=== PATIENT | female | born 1930 | race Hispanic/Latino ===

== ENCOUNTER 2017-07-12 19:13 | Emergency (ER) | payer OTHER ==
[~2017-07-12] VITALS: Ht 152.4 cm; Wt 104.3 kg
[~2017-07-12 19:13] MED LIST: ALENDRONATE SOD70 MG PO; ASA325 PO; ASPIRIN81 MG PO; CARVEDILOL12.5 MG PO; CARVEDILOL25 MG PO; DETROL LA4 MG PO; FERROUS SULFAT325 M1 PO; FERROUS SULFAT325 MG PO; IBUPROFEN600 MG PO; LEVAQUIN500 MG PO; LISINOPRIL40 MG PO; LOVASTATIN40 MG PO; OMEPRAZOLE-BIC1 EACH PO; OMEPRAZOLE40 MG PO; OXYBUTYNIN CHLOR5 M1 PO; OXYBUTYNIN CHLOR5 MG PO; ULTRAM 50MG50 MG PO; ULTRAM50 MG PO; XARELTO10 MG PO
[2017-07-12] MEDS ORDERED: CLONIDINE HCL 0.1 MG TAB PO ONE (20:15)
[2017-07-12] MEDS ORDERED: ALBUTEROL/IPRATROPIUM 3 ML NEB NEB ONE (20:30)
[2017-07-12 22:27] VITALS: BP 145/75
== END 2017-07-12 22:28 | disposition home or self-care (01) ==
LOC: FSED 19:13
DX: R06.00 Dyspnea, unspecified (principal); J45.901 Unspecified asthma with (acute) exacerbation; J00 Acute nasopharyngitis [common cold]; D64.9 Anemia, unspecified; I10 Essential (primary) hypertension
CPT/HCPCS: 71046; 80053; 81003; 82553; 83880; 84484; 85025; 87086; 93005; 99283

== ENCOUNTER 2017-12-09 17:55 | Emergency (ER) | payer OTHER ==
[~2017-12-09] VITALS: Ht 154.9 cm; Wt 72.4 kg
[2017-12-09] MEDS ORDERED: ALBUTEROL/IPRATROPIUM 3 ML NEB NEB ONE (18:30)
[2017-12-09] MEDS ORDERED: SODIUM CHLORIDE 0.9% 500ML 500 ML ONE (19:45)
[2017-12-09 20:51] VITALS: BP 143/66
== END 2017-12-09 21:24 | disposition home or self-care (01) ==
LOC: FSED 17:55
DX: R06.00 Dyspnea, unspecified (principal); J45.21 Mild intermittent asthma with (acute) exacerbation; I10 Essential (primary) hypertension; D50.9 Iron deficiency anemia, unspecified
CPT/HCPCS: 71260; 80053; 82553; 83880; 84484; 85025; 85379; 93005; 94760; 99284; J7040

== ENCOUNTER 2018-10-24 15:19 | Emergency (ER) | payer MEDICARE, OTHER ==
[~2018-10-24] VITALS: Ht 154.9 cm; Wt 72.1 kg
--- OUTSIDE RECORDS SUMMARY | 2018-10-24 15:27 | XMS REPORT | Summary of Care ---
Author Author [facility] Organization [facility] Address Unknown Phone Unavailable Encounter [facility]res(FIN) [id number] Date(s): 02/22/18 - 02/23/18 [facility] [address] [address]- Vital Signs No data available for this section Problem List Condition Effective Dates Status Health Status Informant Chronic blood loss Active anemia(Confirmed) Oral Active aphthae(Confirmed) Benign Active hypertension(Confirm ed) Cholelithiasis(Confi Active rmed) Chronic Active anemia(Confirmed) Chronic back Active pain(Confirmed) Chronic Active diarrhea(Confirmed) Gastritis(Confirmed) Active Mixed Active hyperlipidemia(Confi rmed) Liver Active cyst(Confirmed) Liver Active mass(Confirmed) OA Active (osteoarthritis)(Con firmed) Osteoporosis(Confirm Active ed) Prediabetes(Confirme Active d) Recurrent urinary Active tract infection(Confirmed) Unstable Active gait(Confirmed) UI (urinary Active incontinence)(Confir med) Weight Active loss(Confirmed) Allergies, Adverse Reactions, Alerts No Known Medication Allergies Medications lisinopril 40 mg oral tablet 40 mg=1 tab, PO, Daily, # 90 tab, 0 Refill(s), [facility]acy: [facility] Start Date: 02/22/18 Stop Date: 07/01/18 Status: Discontinued omeprazole 40 mg oral delayed release capsule 40 mg=1 cap, PO, Daily, # 90 cap, 0 Refill(s), Pharmacy: [facility] Start Date: 02/22/18 Stop Date: 03/04/18 Status: Discontinued Results No data available for this section Immunizations Given and Recorded Vaccine Date Status Refusal Reason influenza virus vaccine, inactivated 01/28/18 Given pneumococcal 13-valent vaccine 01/28/18 Given hepatitis B adult vaccine 12/25/15 Given hepatitis B adult vaccine 07/11/15 Given hepatitis B adult vaccine 06/11/15 Given pneumococcal 23-valent vaccine 05/03/15 Recorded Procedures Procedure Date Related Diagnosis Body Site Status Endoscopy1 01/27/18 Completed Colonoscopy2 12/03/16 Completed Echocardiogram3 08/19/16 Completed Bone density scan4 06/15/16 Completed Cholecystectomy 08/2015 Completed Knee replacement2013 Completed Hysterectomy Completed 1mild gastritis and duodenitis without any active bleeding. @ [facility]patient [facility]. 2diverticulosis Dr Mcgill 3EF 68% Mild MR Dr Cortez 4Osteoporosis left femoral neck 5left knee Social History Social History Type Response Alcohol Never Smoking Status Never smoker; Exposure to Tobacco Smoke None; Cigarette Smoking Last 365 Days No; Reg Smoking Cessation Counseling No entered on: 07/01/18 Assessment and Plan No data available for this section
--- OUTSIDE RECORDS SUMMARY | 2018-10-24 15:27 | XMS REPORT | Summary of Care ---
Author Author [facility] Organization [facility] Address Unknown Phone Unavailable Encounter LESVIA Bravo(FIN) [id number] Date(s): 07/01/18 - 07/01/18 [facility] [address], [address] [place] [address]- [phone] Discharge Disposition: Home or Self Care Attending Physician: Bailey Figueroa MD Vital Signs Most recent to 1 oldest [Reference Range]: Height 152.4 cm (07/01/18 9:50 AM) Temperature Oral 97.0 DegF [96.4-99.1 DegF] (07/01/18 9:50 AM) Blood Pressure 105/57 mmHg [90-140/60-90 mmHg] (07/01/18 9:50 AM) Respiratory Rate 16 BRMIN [14-20 BRMIN] (07/01/18 9:50 AM) Peripheral Pulse 66 bpm Rate [60-100 bpm] (07/01/18 9:50 AM) Weight 72.727 kg (07/01/18 9:50 AM) Body Mass Index 31.31 m2 (07/01/18 9:50 AM) Problem List Condition Effective Dates Status Health [...] Weight Active loss(Confirmed) Allergies, Adverse Reactions, Alerts Substance Reaction Severity Status NKDA Active Medications Voltaren Topical 1% topical gel 2 gm=1 appl, TOP, BID, Apply to affected area, # 100 gm, 1 Refill(s), Pharmacy: [facility] [id number] Start Date: 07/01/18 Status: Ordered Results No data available for this section [...] duodenitis without any active bleeding. @ Inpatient [facility]. 2diverticulosis Dr Mcgill 3EF 68% Mild MR Dr Cortez 4Osteoporosis left femoral neck 5left knee Social History Social History Type Response Alcohol Never Smoking Status Never smoker; Exposure to Tobacco Smoke None; Cigarette Smoking Last 365 Days No; Reg Smoking Cessation Counseling No entered on: 07/01/18 Assessment and Plan No data available for this section
--- OUTSIDE RECORDS SUMMARY | 2018-10-24 15:27 | XMS REPORT | Summary of Care ---
Author Author [facility] Organization [facility] Address Unknown Phone Unavailable Encounter [facility](FIN) [id number] Date(s): 07/03/18 - 07/04/18 [facility] [address], [address] [place] [address]- [phone] Vital Signs No data available for this [...] Substance Reaction Severity Status NKDA Active Medications No data available for this section Results No data available for this section [...]
--- OUTSIDE RECORDS SUMMARY | 2018-10-24 15:27 | XMS REPORT | Continuity of Care Document ---
Author Author [facility] Interface Address Unknown Phone Unavailable Problems Problem Status Onset Date Classification Date Reported Comments Source Melena 04/03/2018 08/17/2018 [facility] ABNORMAL LABS Active 01/27/2018 [facility] GI BLEED/ACUTE BLOOD LOSS ANEMIA Active 01/27/2018 [facility] Shortness of breath 11/30/2017 06/13/2018 [facility] R06.02 SHORTNESS OF BREATH Active 11/18/2017 [facility] R06.02 Active 08/24/2017 [facility] Weakness 08/12/2017 11/10/2017 [facility] [place] WEAKNESS, UNSTEADINESS ON FEET Active 06/10/2017 [facility] [place] DX: M81.0=AGE-RELATED OSTEOPOROSIS WITH Active 06/10/2016 [facility] INJECTION Active 12/25/2015 [facility] INJECTION HEP C Active 06/11/2015 [facility] GALLBLADDER Active 03/14/2015 [facility] CONSULT FOR CHOLECYSTECTOMY Active 03/08/2015 [facility] 4 WK FOLLOW UP Active 12/24/2014 [facility] LIVER CYST LEFT LOBE Active 11/05/2014 [facility] Asthma Active Problem 12/28/2015 [facility] 12/28/2015 [facility] Gallstone Active Problem 12/28[facility]2015 [facility] GERD (<span ID="[id number]">Confirmed</span>) Active Problem 12/28/2015 [facility] High blood pressure Active Problem 12/28/2015 [facility] Liver cyst Active Problem 12/28[facility] Ob[facility] 12/28[facility]2015 [facility]17[facility] Gallstone Active Problem 06/19/2016 [facility], [facility] GERD (<span ID="[id number]">Confirmed</span>) Active Problem 06/19/2016 OP[facility], [facility] Liver cyst Active Problem 08/17/2018 [facility] Obesity Active Problem 06/19/2016 MALIK Ojeda,[facility] Benign hypertension Active Problem 10/11/2018 [facility] Cholelithiasis Active Problem 10/11/2018 [facility] Chronic anemia Active Problem 10/11/2018 [facility] [place] Chronic back pain Active Problem 10/11/2018 [facility] [place] Gastritis Active Problem 10/11/2018 [facility] [place] Mixed hyperlipidemia Active Problem 10/11/2018 [facility] [place] Liver cyst Active Problem 10/11/2018 MALIK O[facility] OA (<span ID="[id number]">Confirmed</span>) Active Problem 10/11/2018 [facility] Osteoporosis Active Problem 10/11/2018 [facility] Prediabetes Active Problem 10/11/2018 [facility] [place] Recurrent urinary tract infection Active Problem 10/11/2018 [facility] [place] Unstable gait Active Problem 10/11/2018 [facility] [place] UI (<span ID="[id number]">Confirmed</span>) Active Problem 10/11/2018 [facility] Asthma Active Problem 09/28/2015 MALIK Ojeda, [facility] [place] Cholelithiasis Active Problem 09/28/2015 OPIDeonna Ojeda, [facility] [place] Gallstone Active Problem 09/28/2015 MALIK Ojeda, [facility] [place] GERD (<span ID="[id number]">Confirmed</span>) Active Problem 09/28/2015 MALIK Ojeda, [facility] High blood pressure Active Problem 09/28/2015 OPIDeonna Ojeda, [facility] Liver cyst Active Problem 09/28/2015 MALIK Ojeda, [facility] Obesity Active Problem 09/28/2015 MALIK Ojeda, [facility] Unsteadiness on feet 11/10/2017 [facility] [place] Difficulty in walking, not elsewhere classified 11/10/2017 [facility] [place] Other abnormalities of gait and mobility 11/10/2017 [facility] [place] Anemia Active Problem 11/10/2017 [facility] [place] Cholelithiasis Active Problem 11/10/2017 MALIK Ojeda,[facility] [place] Liver cyst Active Problem 11/10/2017 MALIK Ojeda,[facility] [place] Chronic blood loss anemia Active Problem 10/11/2018 [facility] Oral aphthae Active Problem 10/11/2018 [facility] Chronic diarrhea Active Problem 10/11/2018 [facility] Liver mass Active Problem 10/11/2018 [facility] Weight loss Active Problem 10/11/2018 [facility] Cardiomegaly 06/13/2018 [facility] Atherosclerotic heart disease of [place] coronary artery without angina pectoris 06/13/2018 [facility] Hepatomegaly, not elsewhere classified 06/13/2018 [facility] Cyst of kidney, acquired 06/13/2018 [facility] Atelectasis 06/13/2018 [facility] Other kyphosis, thoracic region 06/13/2018 [facility] Atherosclerosis of aorta 06/13/2018 [facility] Acute posthemorrhagic anemia 08/17/2018 [facility] Gastritis, unspecified, without bleeding 08/17/2018 [facility] Duodenitis without bleeding 08/17/2018 [facility] Noninfective gastroenteritis and colitis, unspecified 08/17/2018 [facility] Dysphagia, unspecified 08/17/2018 [facility] Essential hypertension 08/17/2018 [facility] Encounter for immunization 08/17/2018 [facility] Mixed hyperlipidemia 08/17/2018 [facility] Unspecified osteoarthritis, unspecified site 08/17/2018 [facility] Age-related osteoporosis without current pathological fracture 08/17/2018 [facility] Prediabetes 08/17/2018 [facility] Unspecified asthma, uncomplicated 08/17/2018 [facility] Iron deficiency anemia, unspecified 08/17/2018 [facility] Other specified diseases of liver 08/17/2018 [facility] Unspecified urinary incontinence 08/17/2018 [facility] Other chronic pain 08/17/2018 [facility] Dorsalgia, unspecified 08/17/2018 [facility] ROUTINE MEDICAL EXAM Active [facility] CHRONIC CHOLECYSTITIS Active [facility] ALCOHOLIC FATTY LIVER Active [facility] MEDICAL SERVICES NOT AVAILABLE IN HOME Active [facility] ENCNTR FOR GENERAL ADULT MEDICAL EXAM W/ Active [facility] AGE-RELATED OSTEOPOROSIS W/O CURRENT PAT Active [facility] GASTROINTESTINAL HEMORRHAGE, UNSPECIFIED Active [facility] ACUTE POSTHEMORRHAGIC ANEMIA Active [facility] Medications Medication Details Route Status Patient Instructions Ordering Provider Order Date Source lovastatin 10 mg oral tablet 10 mg=1 tab, PO, Bedtime, # 90 tab, 1 Refill(s), Pharmacy: [id number] Active 08/15/2018 [facility] Diclofenac Sodium 0.01 MG/MG Topical Gel [Voltaren] 2 gm=1 appl, TOP, BID, Apply to affected area, # 100 gm, 1 Refill(s), Pharmacy: [facility] [id number] Active 07/01/2018 [facility] cephalexin 500 mg oral capsule 500 mg=1 cap, PO, TID, # 15 cap, 0 Refill(s), Pharmacy: [facility] [id number] Active 06/01/2018 [facility] lisinopril 40 mg oral tablet 40 mg=1 tab, PO, Daily, # 90 tab, 1 Refill(s), Pharmacy: [facility] [id number] Active 05/31/2018 [facility] Alendronic acid 70 MG Oral Tablet 70 mg=1 tab, PO, Q7D, # 12 tab, 1 Refill(s), Pharmacy: [facility] [id number] Active 03/22/2018 [facility] omeprazole 40 mg oral delayed release capsule 40 mg=1 cap, PO, Daily, # 90 cap, 0 Refill(s), Pharmacy: [facility] [id number] No Longer Active 02/23/2018 [facility] lisinopril 40 mg oral tablet 40 mg=1 tab, PO, Daily, # 90 tab, 0 Refill(s), Pharmacy: [facility] [id number] No Longer Active 02/23/2018 [facility] oxybutynin 10 mg oral tablet, extended release 10 mg=1 tab, PO, Daily, # 90 tab, 1 Refill(s), Pharmacy: [facility] [id number] Active 02/04/2018 [facility] sucralfate 1 g oral tablet 1 gm=1 tab, PO, QID, # 120 tab, 0 Refill(s), Pharmacy: [facility] [id number] Active 01/28/2018 [facility] Carafate 1 gm, 1 tab, Route: PO, Drug form: TAB, QID, Dosing Weight 70, kg, Start date: 01/28/18 17:00:00 CDT, Duration: 30 day, Stop date: 02/27/18 13:00:00 CDTNotes: May interfere w/enteral feeds - Take 1 hr before or 2 hr after antacids, dairy pdt, meals & minerals - On empty stomach. For patients unable to swallow tablet, dissolve in 10mL - 30mL of water or juice and stir before giving. (Same As: Carafate) Inactive 01/28/2018 [facility] phenol 1 spray, Route: TOP, Daily, Drug form: SPRY, PRN Sore Throat, Start date: 01/28/18 14:00:00 CDT, Duration: 30 day, Stop date: 02/27/18 13:59:00 CDTNotes: WASTE: F/P - Black; E - Municipal Trash Bin Inactive 01/28/2018 [facility] Ferrlecit 125 mg, 10 mL, Route: IVPB, Drug form: INJ, ONCE, Dosing Weight 70, kg, Start date: 01/28/18 13:35:00 CDT, Stop date: 01/28/18 13:35:00 CDTNotes: "Limited stability. Use immediately after admixture" "Limited stability. Use immediately after admixture" "Limited stability. Use immediately after admixture" PROTECT FROM LIGHT (Same as: Ferrlecit) MEDICATION WASTE Product Size: 62.5 mg Product Wasted: ___ mg Inactive 01/28/2018 [facility] Lasix 20 mg, 2 mL, Route: IVP, Drug form: INJ, ONCE, Dosing Weight 70, kg, Start date: 01/27/18 22:00:00 CDT, Stop date: 01/27/18 22:00:00 CDTNotes: (Same as: Lasix) No Longer Active 01/28/2018 [facility] pantoprazole 40 mg, Route: IVP, Drug form: INJ, Q12H, Dosing Weight 70, kg, Start date: 01/27/18 21:00:00 CDT, Duration: 30 day, Stop date: 02/26/18 9:00:00 CDT No Longer Active 01/28/2018 [facility] Hydralazine 10 mg, 0.5 mL, Route: IV, Drug form: INJ, ONCE, Dosing Weight 70, kg, PRN Elevated BP, Start date: 01/27/18 19:20:00 CDT, DosingNotes: (Same as: Apresoline) Push over 5 minutes Inactive 01/28/2018 [facility] Sodium Chloride 0.9% IV 1,000 mL 1,000 mL, Rate: 25 ml/hr, Infuse over: 40 hr, Route: IV, Dosing Weight 70 kg, Total Volume: 1,000, Start date: 01/27/18 16:18:00 CDT, Duration: 30 day, Stop date: 02/26/18 16:17:00 CDT, 1.75, m2 Inactive 01/27/2018 [facility] Lisinopril 40 mg, PO, Daily, 0 Refill(s) No Longer Active 01/27/2018 [facility] Ondansetron 4 mg, 2 mL, Route: IVP, Drug form: INJ, ONCE, Dosing Weight 70, kg, PRN Nausea & Vomiting, Start date: 01/27/18 13:03:00 CDTNotes: (Same as: Zofran) MEDICATION WASTE Product Size: 4 mg Pro duct Wasted: ___ mg No Longer Active 01/27/2018 [facility] pantoprazole 80 mg + Sodium Chloride 0.9% IV 100 mL 100 mL, Rate: 10 ml/hr, Infuse over: 10 hr, Route: IV, Dosing Weight 70 kg, Total Volume: 100, Start date: 01/27/18 10:33:00 CDT, Duration: 369 minutes, Stop date: 01/27/18 19:30:00 CDT, 1.75, [id number]: do not load in pyxis Inactive 01/27/2018 [facility] pantoprazole 40 mg, Route: IVP, ONCE, Dosing Weight 70, kg, Priority: STAT, Start date: 01/27/18 10:33:00 CDT, Stop date: 01/27/18 10:33:00 CDT Inactive 01/27/2018 [facility] Saline Flush 0.9% 10 mL, Route: IVP, Drug Form: INJ, Dosing Weight 70, kg, PRN, PRN Line Flush, Start date: 01/27/18 10:33:00 CDT, Duration: 30 day, Stop date: 02/26/18 10:32:00 CDTNotes: (Same as: BD Posiflush) No Longer Active 01/27/2018 [facility] Sodium Chloride 0.9% (Bolus) IV 500 mL, Infuse Over: 1 hr, Route: IV, ONCE, Priority: STAT, Dosing Weight 70 kg, Start date: 01/27/18 10:33:00 CDT, Stop date: 01/27/18 10:33:00 CDT Inactive 01/27/2018 [facility] Saline Flush 0.9% 10 mL, Route: IVP, Drug Form: INJ, Dosing Weight 70, kg, PRN, PRN Line Flush, Start date: 01/27/18 10:13:00 CDT, Duration: 30 day, Stop date: 02/26/18 10:12:00 CDTNotes: (Same as: BD Posiflush) No Longer Active 01/27/2018 [facility] Sodium Chloride 0.9% (titrate) 250 mL 250 mL, Rate: To prime line and flush remaining blood products., Dosing Weight 70, kg, Route: IV, Total Volume: 250, Start Date: 01/27/18 10:13:00 CDT, Duration: 30 day, Stop date: 02/26/18 10:12:00 CDT, Replace Every: 24 hr No Longer Active 01/27/2018 [facility] ferrous sulfate 325 mg oral enteric coated tablet 325 mg=1 tab, PO, Daily, # 90 tab, 0 Refill(s), Pharmacy: [facility] [id number] Active 01/25/2018 [facility] Alendronic acid 70 MG Oral Tablet 70 mg=1 tab, PO, Q7D, # 12 tab, 0 Refill(s) No Longer Active 12/23/2017 [facility] Rivaroxaban (Xarelto) 10 Mg Tablet, 15 Mg Oral Daily Active 12/09/2017 [facility] Omnipaque 300 injectable solution 100 mL, Route: IVP, Drug Form: SOLN, Dosing Weight 72.727, kg, ONCALL, GFR > 45 mL/min, Start date: 11/24/17 12:00:00 CDT, Duration: 1 doses or timesNotes: (Same as:Omnipaque 300). WASTE: F/P - Black; E - Municipal Trash Bin No Longer Active 11/24/2017 [facility] Triamcinolone Acetonide 1 MG/ML Topical Cream 1 appl, TOP, BID, PRN Apply to affected area(s), X 14 day, # 60 gm, 0 Refill(s), Pharmacy: [facility] [id number] No Longer Active 11/18/2017 [facility] Diclofenac Sodium 0.01 MG/MG Topical Gel [Voltaren] 2 gm=1 appl, TOP, BID, Apply to affected area, # 100 gm, 1 Refill(s), Pharmacy: [facility] [id number] Active 10/08/2017 [facility] lovastatin 10 mg oral tablet 10 mg=1 tab, PO, Bedtime, # 90 tab, 1 Refill(s), Pharmacy: [facility] [id number], Decreased dose from 40 to 10 mg Active 10/08/2017 [facility] ciprofloxacin 500 mg oral tablet 500 mg=1 tab, PO, Q12H, for UTI, X 5 day, # 10 tab, 0 Refill(s), Pharmacy: [facility] [id number] Active 08/25/2017 [facility] Ventolin HFA 90 mcg/inh inhalation aerosol with adapter 180 microgram=2 puff, INHALER, Q6H, PRN wheezing, coughing, or shortness of breath, # 1 ea, 0 Refill(s), Pharmacy: [facility] [id number] Active 08/23/2017 [facility] omeprazole 40 mg oral delayed release capsule 40 mg=1 cap, PO, Daily, # 90 cap, 1 Refill(s), Pharmacy: [facility] [id number] Active 07/29/2017 [facility] Ventolin HFA 90 mcg/inh inhalation aerosol with adapter 2 puff, INHALER, Q4H, PRN wheezing, coughing, or shortness of breath, # 8 gm, 3 Refill(s) No Longer Active 07/20/2017 [facility] Alendronic acid 70 MG Oral Tablet 70 mg=1 tab, PO, Q7D, with 6 to 8 ounces plain water, at least 30 minutes before first food, beverage, or medication of the day, # 12 tab, 3 Refill(s), Pharmacy: [facility] [id number] No Longer Active 06/30/2017 [facility] Alendronic acid 70 MG Oral Tablet See Instructions, # 12 tab, Refill(s) 1, TAKE 1 TABLET BY MOUTH EVERY 7 DAYS, Pharmacy: [facility] [id number] Active 06/10/2017 [facility] oxybutynin 5 mg oral tablet, extended release See Instructions, TAKE 1 TABLET BY MOUTH DAILY, # 90 tab, 1 Refill(s), Pharmacy: [facility] [id number] No Longer Active 06/10/2017 [facility] lovastatin 10 mg oral tablet 10 mg=1 tab, PO, Bedtime, # 90 tab, 1 Refill(s), Pharmacy: [facility] [id number], Decreased dose from 40 to 10 mg Active 06/10/2017 [facility] lisinopril 40 mg oral tablet 40 mg=1 tab, PO, Daily, # 90 tab, 1 Refill(s), [id number] No Longer Active 06/10/2017 [facility] carvedilol 12.5 mg oral tablet 12.5 mg=1 tab, PO, BID, # 180 tab, 1 Refill(s), [id number] Active 06/10/2017 [facility] Alendronic acid 70 MG Oral Tablet 70 mg=1 tab, PO, Q7D, # 12 tab, 0 Refill(s), Pharmacy: [facility] [id number] Inactive 06/10/2017 [facility] Carvedilol 25 Mg Tablet, 25 Mg Oral Daily Active 08/15/2016 [facility] Ferrous Sulfate 325 Mg Tablet, 325 Mg Oral Daily Active 08/15/2016 [facility] Levofloxacin (Levaquin) 500 Mg Tablet, 500 Mg Oral Daily Active 08/15/2016 [facility] Omeprazole 40 Mg Capsule.dr, 40 Mg Oral Daily Active 08/15/2016 [facility] Tramadol Hcl (Ultram 50MG*) 50 Mg Tab, 50 Mg Oral Every 6 Hours as needed for Pain Active 08/15/2016 [facility] Tramadol Hcl (Ultram) 50 Mg Tablet, 50 Mg Oral Every 8 Hours as needed for Pain Active 08/04/2015 [facility] Alendronate Sodium 70 Mg Tablet, 70 Mg Oral Wkly Active 08/01/2015 [facility] Tolterodine Tartrate (Detrol La) 4 Mg Cap.er.24h, 4 Mg Oral Daily Active 08/01/2015 [facility] Omeprazole/Sodium Bicarbonate (Omeprazole-Bicarb 20-1,100 Cap) 1 Each Capsule, 1 Tab Oral Daily Active 07/04/2015 [facility] Oxybutynin Chloride 5 Mg Tablet, 5 Mg Oral Daily Active 07/04/2015 [facility] Alendronic acid 70 MG Oral Tablet [Fosamax] 70 mg=1 tab, PO, Q7D, Take with 8 oz of water, # 12 tab, 3 Refill(s)Special Instructions: Take with 8 oz of water Active 12/24/2014 [facility] tramadol hydrochloride 50 MG Oral Tablet 50 mg=1 tab, PO, Q4H, 0 Refill(s) Inactive 12/24/2014 [facility] tolterodine 1 mg oral tablet 1 mg=1 tab, PO, BID, 0 Refill(s) Active 12/24/2014 [facility] omeprazole 40 mg oral delayed release capsule 40 mg=1 cap, PO, Daily, 0 Refill(s) Active 12/24/2014 [facility] lovastatin 40 mg oral tablet 40 mg=1 tab, PO, Daily, 0 Refill(s) Active 12/24/2014 [facility] lisinopril 40 mg oral tablet 40 mg=1 tab, PO, Daily, 0 Refill(s) Active 12/24/2014 [facility] carvedilol 25 mg oral tablet 25 mg=1 tab, PO, BID, 0 Refill(s) Active 12/24/2014 [facility] Psh608 325 Mg Tab, 325 Mg Oral Twice A Day as needed for Active [place] 02/23/2014 [facility] Ibuprofen 600 Mg Tablet, 600 Mg Oral Every 6 Hours Active 02/23/2014 [facility] Alendronate Sodium 70 Mg Tablet Use As Directed Active [facility] Aspirin 81 Mg Tab.chew Daily Active [facility] Carvedilol 12.5 Mg Tablet Twice A Day Active [facility] Ferrous Sulfate 325 Mg Tablet. Twice A Day Active [facility] Lisinopril 40 Mg Tablet Daily Active [facility] Lovastatin 40 Mg Tablet Daily Active [facility] Omeprazole 40 Mg Capsule.dr Daily [facility] Oxybutynin Chloride (Oxybutynin Chloride Er) 5 Mg Tab.er.24 Daily Active [facility] Allergies, Adverse Reactions, Alerts Substance Category Reaction Severity Reaction type Status Date Reported Comments Source No Known Medication Allergies Assertion Drug allergy [facility] Immunizations Immunization Date Given Site Status Last Updated Comments Source influenza virus vaccine, inactivated 01/28/2018 Right Thigh completed [facility] pneumococcal 13-valent vaccine 01/28/2018 Left Deltoid completed [facility] hepatitis B adult vaccine 12/25/2015 Left deltoid completed [facility] hepatitis B adult vaccine 07/11/2015 Right deltoid completed [facility]ord[facility] hepatitis B adult vaccine 06/11/2015 Right deltoid completed [facility]ord[facility] hepatitis B adult vaccine 06/11/2015 Right deltoid completed Jordy [facility] hepatitis B adult vaccine 06/11/2015 Right deltoid completed [facility] 23-valent [facility] 05/03/2015 completed Kanu [facility] Results Order Name Results Value Reference Range Date Interpretation Comments Source HEMATOLOGY MPV 7.7 fL 7.4 - 10.4 01/28/2018 [facility] HEMATOLOGY RDW 25.1 % 11.5 - 14.5 01/28/2018 [facility] HEMATOLOGY Platelet 249 K/CMM 133 - 450 01/28/2018 [facility] Hgb 8.8 g/dL 12.0 - 16.0 01/28/2018 [facility] Hct 27.5 % 36.0 - 48.0 01/28/2018 [facility] MCH 21.3 pg 27.0 - 31.0 01/28/2018 [facility] MCHC 32.0 g/dL 32.0 - 36.0 01/28/2018 [facility] MCV 66.6 fL 80.0 - 98.0 01/28/2018 [facility] RBC 4.12 M/CMM 4.20 - 5.40 01/28/2018 [facility] WBC 7.6 K/CMM 3.7 - 10.4 01/28/2018 [facility] Eosinophils 1.6 % 0.0 - 4.0 01/28/2018 [facility] Plt Morph Normal (01/28/18 5:57 AM) 01/28/2018 [facility] Lymphocytes 20.7 % 20.0 - 40.0 01/28/2018 [facility] Monocytes 7.4 % 2.0 - 12.0 01/28/2018 [facility] Basophils 0.9 % 0.0 - 1.0 01/28/2018 [facility] Segs 69.4 % 45.0 - 75.0 01/28/2018 [facility] Lymphocytes # 1.6 K/CMM 1.0 - 5.5 01/28/2018 [facility] Eosinophils # 0.1 K/CMM 0.0 - 0.5 01/28/2018 [facility] Monocytes # 0.6 K/CMM 0.0 - 0.8 01/28/2018 [facility] Neutrophils # 5.3 K/CMM 1.5 - 8.1 01/28/2018 [facility] Anisocyte 1+ *ABN* (01/28/18 5:57 AM) None Seen 01/28/2018 [facility] Microcyte 3+ *NA* (01/28/18 5:57 AM) None Seen 01/28/2018 [facility] Basophils # 0.1 K/CMM 0.0 - 0.2 01/28/2018 [facility] Hct 26.9 % 36.0 - 48.0 01/28/2018 [facility] Hgb 8.8 g/dL 12.0 - 16.0 01/28/2018 [facility] HEMATOLOGY Hct 28.3 % 36.0 - 48.0 01/28/2018 [facility] HEMATOLOGY Hgb 9.0 g/dL 12.0 - 16.0 01/28/2018 [facility] BLOOD BANK RESULTS RBC product Product available 1 (01/27/18 11:55 AM) 01/27/2018 Result Comment: 01/27/2018 12:19 [id number] notified Shonda [facility] BLOOD BANK RESULTS ABO/Rh A NEG 01/27/2018 [facility] BLOOD BANK RESULTS Antibody Scrn Negative (01/27/18 10:32 AM) 01/27/2018 [facility] CARDIAC ENZYMES Total CK 104 unit/L 12 - 191 01/27/2018 [facility] CARDIAC ENZYMES Troponin-I null 0.00 - 0.40 01/27/2018 [facility] CHEM PANEL eGFR 62 mL/min/1.73m2 01/27/2018 Result Comment: The eGFR is calculated using the CKD-EPI formula. In most young, healthy individuals the eGFR will be >90 mL/min/1.73m2. The eGFR declines with age. An eGFR of 60-89 may be normal in some populations, particularly the elderly, for whom the CKD-EPI formula has not been extensively validated. Use of the eGFR is not recommended in the following populations: Individuals with unstable creatinine concentrations, including patients and those with serious co-morbid conditions. Patients with extremes in muscle mass or diet. The data above are obtained from the National Kidney Disease Education Program (NKDEP) which additionally recommends that when the eGFR is used in patients with extremes of body mass index for purposes of drug dosing, the eGFR should be multiplied by the estimated BMI. [facility] CHEM PANEL BUN 26 mg/dL 7 - 22 01/27/2018 [facility] CHEM PANEL AST 25 unit/L 0 - 37 01/27/2018 [facility] CHEM PANEL Bili Total 0.3 mg/dL 0.2 - 1.3 01/27/2018 [facility] CHEM PANEL Alk Phos 47 unit/L 39 - 136 01/27/2018 [facility] CHEM PANEL ALT 17 unit/L 0 - 65 01/27/2018 [facility] CHEM PANEL Albumin Lvl 3.4 g/dL 3.5 - 5.0 01/27/2018 [facility] CHEM PANEL Total Protein 7.0 g/dL 6.4 - 8.4 01/27/2018 [facility] CHEM PANEL Chloride Lvl 113 meq/L 95 - 109 01/27/2018 [facility] CHEM PANEL Calcium Lvl 8.6 mg/dL 8.5 - 10.5 01/27/2018 [facility] CHEM PANEL CO2 20 meq/L 24 - 32 01/27/2018 [facility] CHEM PANEL Creatinine Lvl 0.85 mg/dL 0.50 - 1.40 01/27/2018 [facility] CHEM PANEL Sodium Lvl 144 meq/L 135 - 145 01/27/2018 [facility] CHEM PANEL Potassium Lvl 4.2 meq/L 3.5 - 5.1 01/27/2018 [facility] CHEM PANEL Glucose Lvl 107 mg/dL 70 - 99 01/27/2018 [facility] CHEM PANEL AGAP 15.2 meq/L 10.0 - 20.0 01/27/2018 [facility] CHEM PANEL A/G Ratio 0.9 0.7 - 1.6 01/27/2018 [facility] CHEM PANEL Globulin 3.6 g/dL 2.7 - 4.2 01/27/2018 [facility] CHEM PANEL B/C Ratio 31 6 - 25 01/27/2018 [facility] HEMATOLOGY Platelet 261 K/CMM 133 - 450 01/27/2018 [facility] HEMATOLOGY MPV 7.9 fL 7.4 - 10.4 01/27/2018 [facility] HEMATOLOGY RBC 3.65 M/CMM 4.20 - 5.40 01/27/2018 [facility] HEMATOLOGY WBC 4.2 K/CMM 3.7 - 10.4 01/27/2018 [facility] HEMATOLOGY RDW 21.2 % 11.5 - 14.5 01/27/2018 [facility] HEMATOLOGY MCV 63.4 fL 80.0 - 98.0 01/27/2018 [facility] HEMATOLOGY MCHC 30.7 g/dL 32.0 - 36.0 01/27/2018 [facility] HEMATOLOGY MCH 19.5 pg 27.0 - 31.0 01/27/2018 [facility] HEMATOLOGY INR 1.12 0.85 - 1.17 01/27/2018 [facility] HEMATOLOGY PT 14.4 s 12.0 - 14.7 01/27/2018 [facility] HEMATOLOGY PTT 34.3 s 22.9 - 35.8 01/27/2018 [facility] HEMATOLOGY Lymphocytes # 1.3 K/CMM 1.0 - 5.5 01/27/2018 [facility] HEMATOLOGY Basophils 1.0 % 0.0 - 1.0 01/27/2018 [facility] HEMATOLOGY Neutrophils # 2.5 K/CMM 1.5 - 8.1 01/27/2018 [facility] HEMATOLOGY Monocytes # 0.3 K/CMM 0.0 - 0.8 01/27/2018 [facility] HEMATOLOGY Hypochrom 1+ (01/27/18 10:32 AM) None Seen 01/27/2018 [facility] HEMATOLOGY Microcyte 3+ *NA* (01/27/18 10:32 AM) None Seen 01/27/2018 [facility] HEMATOLOGY Eosinophils 1.1 % 0.0 - 4.0 01/27/2018 [facility] HEMATOLOGY Monocytes 8.1 % 2.0 - 12.0 01/27/2018 [facility] HEMATOLOGY Segs 59.7 % 45.0 - 75.0 01/27/2018 [facility] HEMATOLOGY Lymphocytes 30.1 % 20.0 - 40.0 01/27/2018 [facility] HEMATOLOGY Plt Morph Normal (01/27/18 10:32 AM) 01/27/2018 [facility] URINE AND STOOL UA Mucus Few /LPF None Seen /LPF 01/27/2018 [facility] URINE AND STOOL UA RBC 3 /HPF 0 - 2 01/27/2018 [facility] URINE AND STOOL UA Sq Epi Occasional /LPF Few /LPF 01/27/2018 [facility] URINE AND STOOL UA pH 5.0 5.0 - 8.0 01/27/2018 [facility] URINE AND STOOL UA Protein Negative mg/dL Negative mg/dL 01/27/2018 [facility] URINE AND STOOL UA Spec Grav 1.020 <=1.030 01/27/2018 [facility] URINE AND STOOL UA Turbidity Clear (01/27/18 10:32 AM) Clear 01/27/2018 [facility] URINE AND STOOL UA Color Yellow *NA* (01/27/18 10:32 AM) Yellow 01/27/2018 [facility] URINE AND STOOL UA Blood Negative (01/27/18 10:32 AM) Negative 01/27/2018 [facility] URINE AND STOOL UA WBC 6 /HPF 0 - 5 01/27/2018 [facility] URINE AND STOOL UA Nitrite Negative (01/27/18 10:32 AM) Negative 01/27/2018 [facility] URINE AND STOOL UA Leuk Est Large *ABN* (01/27/18 10:32 AM) Negative 01/27/2018 [facility] URINE AND STOOL UA Urobilinogen <=1.0 mg/dL 0.1 - 1.0 01/27/2018 [facility] URINE AND STOOL UA Ketones Negative mg/dL Negative mg/dL 01/27/2018 [facility] URINE AND STOOL UA Bili Negative *NA* (01/27/18 10:32 AM) Negative 01/27/2018 [facility] URINE AND STOOL UA Glucose Negative mg/dL Negative mg/dL 01/27/2018 [facility] ED Abdomen/Pelvis IV contrast only CT ED Abdomen/Pelvis IV contrast only CT ED Abdomen/Pelvis IV contrast only CT TECHNIQUE: Contiguous transaxial images of the abdomen and pelvis were performed from the lung bases to the superior pubic rami with IV contrast. CONTRAST: 100cc Omnipaque. GI CONTRAST: No. CT imaging performed at this location utilizes radiation dose optimization techniques which include one or more of the following: -Automated exposure control -Adjustment of the mA and/or kV according to patient size -Use of iterative reconstruction technique CT Radiation Dose DLP 1124.48 mGy-cm CLINICAL HX: - GI bleed Hgb 7.0; COMPARISON: 10/07/2014 CT ABDOMEN: Lower CHEST: The lung bases are clear. Mild cardiomegaly. ABDOMINAL VISCERA: Large cystic lesion in right lobe of liver. There are coarse peripheral calcifications and is unchanged in appearance from previous study of 10/07/2014. 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 No 4.8 cm cystic lesion in left lobe of liver, unchanged. The spleen, pancreas and both adrenals are unremarkable in appearance. Status post cholecystectomy. GI TRACT: Lack of oral contrast limits evaluation of bowel. Colonic diverticulosis, most pronounced in the descending colon. No evidence to suggest small or large bowel obstruction. There is no evidence for free fluid or free air in the abdomen. TRACT: Kidneys: Bilateral renal cysts.The kidneys otherwise demonstrate normal morphology. Retroperitoneum: No significant retroperitoneal lymphadenopathy is noted. VASCULATURE: Advanced aortoiliac atherosclerotic disease. BONE and SOFT TISSUES: Stable post vertebroplasty changes at L1 and L3 level. No acute bony abnormality is noted. Ventral abdominal hernia containing mesenteric fat. No bowel herniation. CT PELVIS: The bladder demonstrates normal morphology. Uterus is not visualized suggesting prior hysterectomy. No gross adnexal mass is visualized. No free fluid is present in the pelvis. 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 Bilateral renal cysts. Ventral abdominal hernia containing mesenteric fat. Colonic diverticulosis. No CT evidence for diverticulitis. Fatty infiltration of liver. Status post cholecystectomy. SL: [id number] 01/27/2018 - - Read by: Omar Cook MD Dictated Date/time: 01/27/18 14:30 Electronically Signed by: Omar Cook MD 01/27/18 14:48 FINAL REPORT [facility] CHEM PANEL POC Creatinine 0.7 mg/dL 0.5 - 1.4 11/24/2017 [facility] CHEM PANEL eGFR 79 mL/min/1.73m2 11/24/2017 Result Comment: The eGFR is calculated using the CKD-EPI formula. In most young, healthy individuals the eGFR will be >90 mL/min/1.73m2. The eGFR declines with age. An eGFR of 60-89 may be normal in some populations, particularly the elderly, for whom the CKD-EPI formula has not been extensively validated. Use of the eGFR is not recommended in the following populations: Individuals with unstable creatinine concentrations, including patients and those with serious co-morbid conditions. Patients with extremes in muscle mass or diet. The data above are obtained from the National Kidney Disease Education Program (NKDEP) which additionally recommends that when the eGFR is used in patients with extremes of body mass index for purposes of drug dosing, the eGFR should be multiplied by the estimated BMI. [facility] Chest w contrast CT Chest w contrast CT EXAM: CT CHEST WITH CONTRAST DATE: 11/24/2017 11:31 AM CDT : 1930; Age: 87 years y/o Female INDICATION: - R06.02 Shortness of breath COMPARISON: None TECHNIQUE: Volumetric CT of the chest is acquired following intravenous administration of contrast. Axial, coronal and sagittal images are provided. IV Contrast: 100 mL Omni. DLP: 223 mGy-cm CT imaging performed at this location utilizes radiation dose optimization techniques which include one or more of the following: -Automated exposure control -Adjustment of the mA and/or kV according to patient size -Use of iterative reconstruction technique FINDINGS: Lower neck: The visible portions or the lower neck and thyroid are unremarkable. Lymph Nodes: There is no mediastinal or hilar lymphadenopathy. No axillary lymphadenopathy. Heart, pericardium and aorta: : The heart is enlarged. No pericardial effusion. There are coronary artery calcifications. Atheromatous changes are present in the aorta.. LUNGS: Some bibasilar atelectasis, otherwise lungs are clear. No pleural effusions. The central airway is patent. Upper abdomen: 7.7 x 7.6 cm cystic lesion with peripheral calcification is seen within the right hepatic lobe. Some high attenuation is seen within the dependent portion of the cystic focus. Within left hepatic lobe 3.3 cm low- attenuation lesion is seen with 25 Hounsfield unit density. Gallbladder is surgically absent. Partially visualized left kidney cyst. Soft tissues: Normal. Bones: Vertebral augmentation is noted within the L1 vertebral body. Severe compression of T6 is seen from unknown age. Moderate multilevel spinal degenerative changes. Increased thoracic kyphosis. IMPRESSION: No acute infectious pulmonary process within the lungs. Severe compression of T6 vertebral body is seen from unknown age. 7.7 x 7.6 cm low-attenuation lesion with peripheral calcification is seen within the right hepatic lobe. Some high attenuation is seen within the dependent portion of this right hepatic lobe lesion. Within left hepatic lobe 3.3 cm low- attenuation lesion is seen with 25 Hounsfield unit density. This lesions are indeterminate. Cardiomegaly with coronary artery disease. Incidental Liver Mass follow-up >1.5cm Low attenuation, suspicious imaging features+-: \\X2022\\ Low risk: f/u in 6 mo \\X2022\\ Average risk: Multiphasic MRI or f/u CT/MR in 6 mo \\X2022\\ High risk: Biopsy, multiphasic MRI or f/u CT/MR in 6mo *Low risk=< 40 years old, no known malignancy, hepatic dysfxn, hepatic malignant risk factors or symptoms attributable to the liver *Average risk=>40 years old, no known malignancy, hepatic dysfxn, hepatic malignant risk factors or symptoms attributable to the liver \\S\\High risk=known primary malignancy with propensity to metastasize to the liver, cirrhosis, and/or other hepatic risk factors such as hepatitis, sclerosing cholangitis, primary biliary cirrhosis, hemochromatosis, hemosiderosis, oral contraceptive use, anabolic steroid use. REFERENCE: Yaz L et al. Managing Incidental Findings on Abdominal CT: White Paper of the ACR Incidental Findings Committee. J Am Woody Radiol 2010; 7: 754-773 SL: [id number] 11/24/2017 - - Read by: Derrell Suarez Dictated Date/time: 11/25/17 08:23 Electronically Signed by: Derrell Suarez 11/25/17 10:52 FINAL REPORT [facility] Chest 2 views DX Chest 2 views DX Patient Name: MICHAELLE BEAL : 1930; Age: 86 years Female MR: [id number] Study: Chest 2 views DX Order Time: 08/24/2017 11:30 AM CDT Clinical Indication: - cough; difficulty breathing. PATIENT HERE FOR DIFFICULTY BREATHING SINCE WEDNESDAY. STATES RECENTLY DX WITH ASTHMA. COMPARISON: 07/24/2010. 09/22/2007. FINDINGS: Views: 1 LUNGS: There is normal lung volume. Left lower lobe atelectasis. There are no pleural effusions. There is no pneumothorax. The pulmonary vasculature is normal. MEDIASTINUM: The cardiac silhouette is normal. The trachea is midline. BONES: Post vertebroplasty change. Old left posterior rib fractures. IMPRESSION: 1. No radiographic evidence of acute pulmonary disease. Old left posterior rib fractures. BRENNA: JOHN PAUL 08/24/2017 - - Read by: Donovan Ruiz MD Dictated Date/time: 08/24/17 14:12 Electronically Signed by: Donovan Ruiz MD 08/24/17 14:13 FINAL REPORT [facility] Bone Density Scan Bone Density Scan BONE DENSITY: HISTORY: Osteoporosis. TECHNIQUE: Dual energy x-ray absorptiometry (DEXA) was done over the lumbar spine and left hip on a HoloVecast Discovery SL scanner. FINDINGS: The total T-score over the lumbar spine is -0.6, consistent with normal bone density. The global T-score over the left hip is -2.3, consistent with osteopenia. The focal T-score over the left femoral neck is -2.9, consistent with osteoporosis. The BMD is 0.527 g/sq cm. IMPRESSION: 1. Normal bone density of the lumbar spine. 2. Normal osteopenia of the left hip. 3. Osteoporosis of the left femoral neck. FOR YOUR INFORMATION: The World Health Organization has established that OSTEOPOROSIS occurs at -2.5 or more standard deviations below peak bone mass (T-score). OSTEOPENIA occurs at -1.0 to -2.5 standard deviations (T-score) below peak bone mass. [id number] 06/16/2016 - - Read by: Brandon Valadez MD Dictated Date/time: 06/16/16 13:18 Electronically Signed by: Brandon Valadez MD 06/16/16 13:19 FINAL REPORT [facility] Spine lumbar wo contrast MRI Spine lumbar wo contrast MRI MRI LUMBAR SPINE WITHOUT CONTRAST COMPARISON: No prior exam. TECHNIQUE: Sagittal T1, sagittal T2 with fat saturation, axial T1 and axial T2 images were obtained. No intravenous gadolinium was given. FINDINGS: The paravertebral soft tissues are normal. The conus medullaris terminates at the L1 level. Mild levo scoliosis of the lumbar spine is present. Severe multiple level lumbar spine degenerative changes are present. Congenital shortened lumbar pedicles are seen. T11-T12 ligamenta flava redundancy with mild central canal stenosis is present. L1 and L3 mild to moderate chronic vertebral compression fractures are seen without marrow edema. No significant retropulsion is present. T12-L1: 4.8 mm central and right paracentral disc protrusion is present with moderate central canal stenosis. No significant mass effect on the conus medullaris. Mild bilateral foraminal stenosis. L1-L2: Minimal disc bulge without central canal or foraminal stenosis. L2-L3: 2 mm disc bulge with moderate ligamenta flava redundancy with mild to moderate central canal stenosis in combination with the short pedicles. Moderate bilateral foraminal stenosis. L3-L4: 3 mm grade 1 anterolisthesis is present with severe facet osteoarthritis. Severe central canal stenosis and right lateral recess stenosis are present with the thecal sac measuring 6.7 mm in AP dimension. Severe right foraminal stenosis and moderate to severe left foraminal stenosis are present. L4-L5: 3 mm disc bulge is present with significant left facet osteoarthritis. Moderate central canal stenosis and bilateral lateral recess stenosis are present. Mild right foraminal stenosis and moderate to severe left foraminal stenosis. L5-S1: Facet osteoarthritis without central canal or foraminal stenosis. IMPRESSION: 1. Multilevel disc degenerative disease and spondylosis. 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 Levoscoliosis. 2. L1 and L3 chronic vertebral compression fractures. 3. T12-L1 disc protrusion with moderate central canal stenosis. No mass effect on the conus medullaris. 4. L2-L3 mild to moderate central canal stenosis, L3-L4 severe central canal stenosis, L4-L5 moderate central canal stenosis. 5. Multilevel moderate to severe foraminal stenosis as above. 09/25/2015 - - Read by: Paul Tolentino MD Dictated Date/time: 09/25/15 16:37 Electronically Signed by: Paul Tolentino MD 09/25/15 16:43 FINAL REPORT [facility] Gallbladder scan JOSE MIGUEL cohen [place] Gallbladder scan JOSE MIGUEL cohen NM Hepatobiliary scan with medication, Date: Feb 11, 2015 05:24:39 PM CLINICAL INDICATION: Right upper quadrant abdominal pain, evaluate for gallbladder disorders. COMPARISON: Prior CT of the abdomen and pelvis dated October 07, 2014 TECHNIQUE: After the intravenous administration of 5.0 mCi of technetium 99m Choletec, dynamic blood flow images followed by sequential static images through 60 minutes were obtained. Delayed images at 2 hours were also obtained. Subsequently the patient was injected with an additional 2 mCi of technetium 99m Choletec and delayed images of the abdomen were obtained at 3 hours. FINDINGS: There is good tracer uptake in the liver with homogeneous distribution. The liver appears normal in size and shape. There is timely excretion of tracer into the extrahepatic biliary tree, and bowel. The gallbladder was not visualized up to 3 hours delayed imaging. These findings are suggestive of acute cholecystitis or cystic duct obstruction. IMPRESSION: Nonvisualization of the gallbladder up to 3 hours delayed imaging suggestive of cystic duct obstruction or acute cholecystitis. Dr. Orellana was informed of the results at 5:50 p.m. on February 11, 2015. 02/11/2015 - - Read by: Vashti Johnson MD Dictated Date/time: 02/11/15 18:08 Electronically Signed by: Vashti Johnson MD 02/11/15 18:14 FINAL REPORT [facility] Vital Signs Vital Sign Value Date Comments Source BMI Calculated 31.31 07/01/[facility] Weight 72.727 07/01/[facility] Height 152.4 cm 07/01/2018 [facility] Respitory Rate 16 07/01/2018 [facility] Heart Rate 66 07/01/2018 [facility] Temperature Oral (F) 97.0 F 07/01/2018 [facility] Systolic (mm Hg) 105 07/01/2018 [facility] Diastolic (mm Hg) 57 07/01/2018 [facility] BMI Calculated 30.77 06/01/2018 [facility] Weight 71.477 06/01/2018 [facility] Height 152.4 cm 06/01/2018 [facility] Heart Rate 75 06/01/2018 [facility] Respitory Rate 14 06/01/2018 [facility] Temperature Oral (F) 97.9 F 06/01/2018 [facility] Systolic (mm Hg) 142 06/01/2018 [facility] Diastolic (mm Hg) 69 06/01/2018 [facility] Systolic (mm Hg) 120 03/04/2018 [facility] Diastolic (mm Hg) 65 03/04/2018 [facility] Temperature Oral (F) 97.0 F 03/04/2018 [facility] Heart Rate 54 03/04/2018 [facility] Respitory Rate 16 03/04/2018 [facility] Systolic (mm Hg) 154 03/04/2018 [facility] Diastolic (mm Hg) 66 03/04/2018 [facility] Height 152.4 cm 03/04/2018 [facility] Weight 70 03/04/2018 [facility] BMI Calculated 30.14 03/04/2018 [facility] Height 152.4 cm 02/04/2018 [facility] BMI Calculated 30.53 02/04/2018 [facility] Weight 70.909 02/04/2018 [facility] Respitory Rate 16 02/04/2018 [facility] Temperature Oral (F) 96.9 F 02/04/2018 [facility] Heart Rate 68 02/04/2018 [facility] Systolic (mm Hg) 137 02/04/2018 [facility] Diastolic (mm Hg) 62 02/04/2018 [facility] Heart Rate 78 01/28/2018 [facility] Respitory Rate 18 01/28/2018 [facility] Systolic (mm Hg) 164 01/28/2018 [facility] Diastolic (mm Hg) 73 01/28/2018 [facility] Temperature Oral (F) 98 F 01/28/2018 [facility] Respitory Rate 18 01/28/2018 [facility] Heart Rate 68 01/28/2018 [facility] Systolic (mm Hg) 154 01/28/2018 [facility] Diastolic (mm Hg) 64 01/28/2018 [facility] Temperature Oral (F) 98.5 F 01/28/2018 [facility] Respitory Rate 18 01/28/2018 [facility] Heart Rate 65 01/28/2018 [facility] Systolic (mm Hg) 153 01/28/2018 [facility] Diastolic (mm Hg) 68 01/28/2018 [facility] Temperature Oral (F) 98.4 F 01/28/2018 [facility] Height 152.4 cm 01/27/2018 [facility] Weight 70 01/27/2018 [facility] BMI Calculated 30.14 01/27/2018 [facility] Weight 70 01/27/2018 [facility] BMI Calculated 30.14 01/27/2018 [facility] Height 152.4 cm 01/27/2018 [facility] Weight 70 01/24/2018 [facility] BMI Calculated 31.17 01/24/2018 [facility] Height 149.86 cm 01/24/2018 [facility] Systolic (mm Hg) 168 01/24/2018 [facility] Diastolic (mm Hg) 57 01/24/2018 [facility] Heart Rate 60 01/24/2018 [facility] Temperature Oral (F) 97.9 F 01/24/2018 [facility] Respitory Rate 14 01/24/2018 [facility] Systolic (mm Hg) 129 11/18/2017 [facility] Diastolic (mm Hg) 68 11/18/2017 [facility] Weight 72.727 11/18/2017 [facility] BMI Calculated 32.38 11/18/2017 [facility] Height 149.86 cm 11/18/2017 [facility] Respitory Rate 16 11/18/2017 [facility] Temperature Oral (F) 97.9 F 11/18/2017 [facility] Heart Rate 64 11/18/2017 [facility] Systolic (mm Hg) 160 11/18/2017 [facility] Diastolic (mm Hg) 64 11/18/2017 [facility] BMI Calculated 32.38 10/08/2017 [facility] Weight 72.727 10/08/2017 [facility] Height 149.86 cm 10/08/2017 [facility] Temperature Oral (F) 97.1 F 10/08/2017 [facility] Respitory Rate 16 10/08/2017 [facility] Heart Rate 84 10/08/2017 [facility] Systolic (mm Hg) 111 10/08/2017 [facility] Diastolic (mm Hg) 69 10/08/2017 [facility] Weight 72.727 08/23/2017 [facility] Height 149.86 cm 08/23/2017 [facility] BMI Calculated 32.38 08/23/2017 [facility] Systolic (mm Hg) 118 08/23/2017 [facility] Diastolic (mm Hg) 64 08/23/2017 [facility] Heart Rate 74 08/23/2017 [facility] Temperature Oral (F) 96.8 F 08/23/2017 [facility] Respitory Rate 16 08/23/2017 [facility] BMI Calculated 32.59 07/20/2017 [facility] Height 149.86 cm 07/20/2017 [facility] Temperature Oral (F) 96.9 F 07/20/2017 [facility] Respitory Rate 16 07/20/2017 [facility] Heart Rate 62 07/20/2017 [facility] Weight 73.182 07/20/2017 [facility] Systolic (mm Hg) 136 07/20/2017 [facility] Diastolic (mm Hg) 64 07/20/2017 [facility] Systolic (mm Hg) 135 06/10/2017 [facility] Diastolic (mm Hg) 68 06/10/2017 [facility] Temperature Oral (F) 97.5 F 06/10/2017 [facility] Height 154.94 cm 06/10/2017 [facility] BMI Calculated 30.51 06/10/2017 [facility] Weight 73.239 06/10/2017 [facility] Systolic (mm Hg) 184 06/10/2017 [facility] Diastolic (mm Hg) 66 06/10/2017 [facility] Heart Rate 60 06/10/2017 [facility] Respitory Rate 16 06/10/2017 [facility] Weight 72.7 03/14/2015 [facility] BMI Calculated 32.4 03/14/2015 [facility] Height 149.8 cm 03/14/2015 [facility] Heart Rate 58 03/14/2015 [facility] Respitory Rate 19 03/14/2015 [facility] Systolic (mm Hg) 151 03/14/2015 [facility] Diastolic (mm Hg) 79 03/14/2015 [facility] Weight 72.182 01/21/2015 [facility] BMI Calculated 32.17 01/21/2015 [facility] Height 149.8 cm 01/21/2015 [facility] Heart Rate 71 01/21/2015 [facility] Systolic (mm Hg) 138 01/21/2015 [facility] Diastolic (mm Hg) 77 01/21/2015 [facility] Height 149.86 cm 12/24/2014 [facility] Weight 69.773 12/24/2014 [facility] BMI Calculated 31.07 12/24/2014 [facility] Temperature Oral (F) 97.4 F 12/24/2014 [facility] Heart Rate 63 12/24/2014 [facility] Systolic (mm Hg) 173 12/24/2014 [facility] Diastolic (mm Hg) 70 12/24/2014 [facility] Encounters Location Location Details Encounter Type Encounter Number Reason For Visit Attending Provider ADM Date DC Date Status Source [facility] Outpatient [id number] Ayush Orellana 12/24/2014 12/25/2014 [facility] Outpatient [id number] Ayush Orellana 01/21/2015 01/22/2015 [facility] [place] [facility] [id number] Ayush Orellana 02/11/2015 02/12/2015 PRIYAD Rusty [facility] Outpatient [id number] Non Physician 03/14/2015 03/15/2015 [facility] Outpatient [id number] Ayush Orellana 06/11/2015 06/12/2015 [facility] Outpatient [id number] Ayush Orellana 07/11/2015 07/12/2015 [facility] [place] [facility] Di[facility] [id number] Brandon Martinez 09/25/2015 09/26/2015 [facility] [place] [facility] Outpatient [id number] Ayush Orellana 12/25/2015 12/26/2015 [facility] Outpatient [id number] VAISHNAVI YOUNG 06/10/2016 Active [facility] Outpatient [id number] Vaishnavi Young 06/16/2016 06/17/2016 [facility] Outpatient [id number] VAISHNAVI YOUNG 07/17/2016 Active [facility] [id number] VAISHNAVI YOUNG 08/04/2016 Active [facility] [id number] VAISHNAVI YOUNG 09/08/2016 Active [facility] Outpatient [id number] VAISHNAVI YOUNG 12/04/2016 Active [facility] Outpatient [id number] VAISHNAVI YOUNG 03/08/2017 Active [facility] [id number] VAISHNAVI YOUNG 06/10/2017 Active [facility] Outpatient [id number] Vaishnavi Young 06/10/2017 06/11/2017 [facility] Phone Message [id number] 06/29/2017 07/01/2017 [facility] OP Therapy Patients [id number] Vaishnavi Young 07/06/2017 08/05/2017 [facility] Departed Emergency Room [id number] PHILIP PHILLIPS MD 07/12/2017 07/12/2017 [facility] Phone Message [id number] 07/19/2017 07/21/2017 [facility] Outpatient [id number] VAISHNAVI YOUNG 07/20/2017 Active [facility] Outpatient [id number] Vaishnavi Young 07/20/2017 07/21/2017 [facility] Phone Message [id number] 07/29/2017 07/31/2017 [facility] Phone Message [id number] 07/29/2017 07/31/2017 [facility] Outpatient [id number] VAISHNAVI YOUNG 08/23/2017 Active [facility] Outpatient [id number] Vaishnavi Young 08/23/2017 08/24/2017 [facility] Outpatient [id number] Vaishnavi Young 08/24/2017 08/25/2017 [facility] Outpatient [id number] VAISHNAVI YOUNG 10/08/2017 Active [facility] Outpatient [id number] Vaishnavi Young 10/08/2017 10/09/2017 [facility] Outpatient [id number] VAISHNAVI YOUNG 11/18/2017 Active [facility] Outpatient [id number] Vaishnavi Young 11/18/2017 11/19/2017 [facility] Outpatient [id number] Andrzej Lawson 11/24/2017 11/25/2017 [facility] Departed Emergency Room [id number] ELIZABETH COOK MD 12/09/2017 12/09/2017 [facility] Phone Message [id number] 12/23/2017 12/25/2017 [facility] Outpatient [id number] ROSALINE TIERNEY 01/24/2018 Active [facility] Outpatient [id number] Rosaline Heath 01/24/2018 01/25/2018 [facility] Inpatient [id number] Isidoro Boggs 01/27/2018 01/29/2018 [facility] Outpatient [id number] VAISHNAVI YOUNG 02/04/2018 Active [facility] Outpatient [id number] Vaishnavi Young 02/04/2018 02/05/2018 [facility] Phone Message [id number] 02/22/2018 02/24/2018 [facility] Outpatient [id number] VAISHNAVI YOUNG 03/04/2018 Active [facility] Outpatient [id number] Vaisnhavi Young 03/04/2018 03/05/2018 [facility] Phone Message [id number] 03/22/2018 03/24/2018 [facility] Phone Message [id number] 05/31/2018 06/02/2018 [facility] Outpatient [id number] BHARATIAO DEMETRIO 06/01/2018 Active [facility] Outpatient [id number] Vaishnavi Young 06/01/2018 06/02/2018 [facility] Outpatient [id number] VAISHNAVI YOUNG 07/01/2018 Active [facility] Outpatient [id number] Vaishnavi Young 07/01/2018 07/02/2018 [facility] Between Visit [id number] 07/04/2018 07/05/2018 [facility] Phone Message [id number] 08/15/2018 08/17/2018 [facility] Outpatient [id number] VAISHNAVI YOUNG 10/31/2018 Active [facility] Procedures Procedure Code Date Perfomer Comments Source Endoscopy<sup>1</sup> [id number] 01/27/2018 mild gastritis and duodenitis without any active bleeding. @ Inpatient [facility] Endoscopy<sup>1</sup> [id number] 01/27/2018 mild gastritis and duodenitis without any active bleeding. @ Inpatient [facility] Colonoscopy<sup>1</sup> [id number] 12/03/[address] Mcgill [facility] Endoscopy<sup>2, 3</sup> [id number] 12/03/[address]Harry Klein [facility] Colonoscopy<sup>1</sup> [id number] 12/03/[address] Mcgill [facility] Endoscopy<sup>2, 3</sup> [id number] 12/03/[address]Harry Klein [facility] Colonoscopy<sup>1</sup> [id number] 12/03/[address] Mcgill [facility] Endoscopy<sup>2, 3</sup> [id number] 12/03/[address]Harry Klein [facility] Colonoscopy<sup>2</sup> [id number] 12/03/[address] Mcgill [facility] Colonoscopy<sup>2</sup> [id number] 12/03/[address] Mcgill [facility] Echocardiogram<sup>4</sup> [id number] 08/19/2016 EF 68% Mild MR Dr Cortez [facility] Echocardiogram<sup>4</sup> [id number] 08/19/2016 EF 68% Mild MR Dr Cortez [facility] Echocardiogram<sup>4</sup> [id number] 08/19/2016 EF 68% Mild MR Dr Cortez [facility] Echocardiogram<sup>3</sup> [id number] 08/19/2016 EF 68% Mild MR Dr Cortez [facility] Echocardiogram<sup>3</sup> [id number] 08/19/2016 EF 68% Mild MR Dr Cortez [facility] Bone density scan<sup>1</sup> [id number] 06/15/2016 Osteoporosis left femoral neck [facility] Bone density scan<sup>5</sup> [id number] 06/15/2016 Osteoporosis left femoral neck [facility] Bone density scan<sup>5</sup> [id number] 06/15/2016 Osteoporosis left femoral neck [facility] Bone density scan<sup>5</sup> [id number] 06/15/2016 Osteoporosis left femoral neck [facility] Bone density scan<sup>4</sup> [id number] 06/15/2016 Osteoporosis left femoral neck [facility] Bone density scan<sup>4</sup> [id number] 06/15/2016 Osteoporosis left femoral neck [facility] Cholecystectomy [id number] 08/02/2015 [facility] Cholecystectomy [id number] 08/02/2015 [facility] Cholecystectomy [id number] 08/02/2015 [facility] Knee replacement<sup>2</sup> [id number] 05/03/2013 left knee [facility] Knee replacement<sup>6</sup> [id number] 05/03/2013 left knee [facility] Knee replacement<sup>6</sup> [id number] 05/03/2013 left knee [facility] Knee replacement<sup>6</sup> [id number] 05/03/2013 left knee [facility] Knee replacement<sup>5</sup> [id number] 05/03/2013 left knee [facility] Knee replacement<sup>5</sup> [id number] 05/03/2013 left knee [facility] [id number] [facility] [id number] [facility] Hysterectomy [id number] [id number] Hysterectomy [id number] [facility] [place] [facility] [id number] [facility]
--- OUTSIDE RECORDS SUMMARY | 2018-10-24 15:27 | XMS REPORT | Summary of Care ---
Author Author [facility] Organization [facility] Address Unknown Phone Unavailable Encounter HQ Moisésr_torres(FIN) [id number] Date(s): 12/23/17 - 12/24/17 [facility] [address], [address] [place] [address]- [phone] Vital Signs No data available for this [...] Substance Reaction Severity Status NKDA Active Medications alendronate 70 mg oral tablet 70 mg=1 tab, PO, Q7D, # 12 tab, 0 Refill(s) Start Date: 12/23/17 Stop Date: 01/28/18 Status: Discontinued Results No data available for [...] scan4 06/15/16 Completed Cholecystectomy 08/2015 Completed Knee replacement5 2013 Completed Hysterectomy Completed 1mild gastritis and duodenitis [...]
--- OUTSIDE RECORDS SUMMARY | 2018-10-24 15:27 | XMS REPORT | Summary of Care ---
Author Author [facility] Organization [facility] Address Unknown Phone Unavailable Encounter HQ Camden_torres(FIN) [id number] Date(s): 03/22/18 - 03/23/18 [facility] [address] [address]- Vital Signs No data available for this [...] Reactions, Alerts No Known Medication Allergies Medications alendronate 70 mg oral tablet 70 mg=1 tab, PO, Q7D, # 12 tab, 1 Refill(s), Pharmacy: [facility] 3 Start Date: 03/22/18 Status: Ordered Results No data available for [...]
--- OUTSIDE RECORDS SUMMARY | 2018-10-24 15:27 | XMS REPORT | Summary of Care ---
Author Author [facility] Organization [facility] Address Unknown Phone Unavailable Encounter HQ Shelly(FIN) [phone] Date(s): 01/24/18 - 01/24/18 [facility] [address] [address]- Discharge Disposition: Home or Self Care Attending Physician: Rosaline Ordaz MD Vital Signs Most recent to 1 oldest [Reference Range]: Height 149.86 cm (01/24/18 3:58 PM) Temperature Oral 97.9 DegF [96.4-99.1 DegF] (01/24/18 3:58 PM) Blood Pressure 168/57 mmHg [90-140/60-90 mmHg] *HI* (01/24/18 3:58 PM) Respiratory Rate 14 BRMIN [14-20 BRMIN] (01/24/18 3:58 PM) Peripheral Pulse 60 bpm Rate [60-100 bpm] (01/24/18 3:58 PM) Weight 70 kg (01/24/18 3:58 PM) Body Mass Index 31.17 m2 (01/24/18 3:58 PM) Problem List Condition Effective Dates Status Health [...] Substance Reaction Severity Status NKDA Active Medications ferrous sulfate 325 mg oral enteric coated tablet 325 mg=1 tab, PO, Daily, # 90 tab, 0 Refill(s), Pharmacy: [facility] [id number] Start Date: 01/25/18 Stop Date: 04/25/18 Status: Ordered Results No data available for [...]
--- OUTSIDE RECORDS SUMMARY | 2018-10-24 15:28 | XMS REPORT | Summary of Care ---
Author Author [facility] Organization [facility] Address Unknown Phone Unavailable Encounter HQ Shelly(FIN) [phone] Date(s): 11/24/17 - 11/24/17 [facility] [address] [place] [address]- [phone] Encounter Diagnosis Shortness of breath (Final) - 11/29/17 Cardiomegaly (Final) - Atherosclerotic heart disease of [place] coronary artery without angina pectoris (Final) - Hepatomegaly, not elsewhere classified (Final) - Cyst of kidney, acquired (Final) - Atelectasis (Final) - Other kyphosis, thoracic region (Final) - Atherosclerosis of aorta (Final) - Discharge Disposition: Home or Self Care Attending Physician: Andrzej Lawson MD Referring Physician: Andrzej Lawson MD Vital Signs No data available for this [...] Substance Reaction Severity Status NKDA Active Medications Omnipaque 300 injectable solution 100 mL, Route: IVP, Drug Form: SOLN, Dosing Weight 72.727, kg, ONCALL, GFR > 45 mL/min, Start date: 11/24/17 12:00:00 CDT, Duration: 1 doses or times Notes: (Same as:Omnipaque 300).WASTE: F/P - Black; E - [facility] [employer]ash [facility] Start Date: 11/24/17 Stop Date: 01/27/18 Status: Deleted Results CHEM PANEL Most recent to 1 oldest [Reference Range]: eGFR 79 mL/min/1.73m2 1 *NA* (11/24/17 11:31 AM) POC Creatinine 0.7 mg/dL [0.5-1.4 mg/dL] (11/24/17 11:31 AM) 1Result Comment: The eGFR is calculated using the [...] from the National Kidney Disease Education Program ( NKDEP) which additionally recommends that when the eGFR is used in patients with extremes of body mass index for purposes of drug dosing, the eGFR should be mul tiplied by the estimated BMI. Immunizations Given and Recorded Vaccine Date Status [...] Reg Smoking Cessation Counseling No entered on: 06/01/18 Assessment and Plan No data available for this section
--- OUTSIDE RECORDS SUMMARY | 2018-10-24 15:28 | XMS REPORT | Summary of Care ---
Author Author [facility] Organization [facility] Address Unknown Phone Unavailable Encounter HQ Dorianntr_alistephen(FIN) [id number] Date(s): 05/31/18 - 06/01/18 [facility] [address], [address] [place] [address]- [phone] Vital Signs No data available for this [...] Substance Reaction Severity Status NKDA Active Medications lisinopril 40 mg oral tablet 40 mg=1 tab, PO, Daily, # 90 tab, 1 Refill(s), Pharmacy: [facility] 04 133 Start Date: 05/31/18 Status: Ordered Results No data available for [...]
--- OUTSIDE RECORDS SUMMARY | 2018-10-24 15:28 | XMS REPORT | Summary of Care ---
Author Author [facility] Organization [facility] Address Unknown Phone Unavailable Encounter HQ Moisésr_torres(FIN) [id number] Date(s): 08/15/18 - 08/16/18 [facility] [address] [address]- Vital Signs No data available for this [...] Substance Reaction Severity Status NKDA Active Medications lovastatin 10 mg oral tablet 10 mg=1 tab, PO, Bedtime, # 90 tab, 1 Refill(s), Pharmacy: [facility] [id number] Start Date: 08/15/18 Status: Ordered Results No data available for [...]
--- OUTSIDE RECORDS SUMMARY | 2018-10-24 15:28 | XMS REPORT | Summary of Care ---
Author Author [facility] Organization [facility] Address Unknown Phone Unavailable Encounter HQ Shelly(FIN) [id number] Date(s): 11/18/17 - 11/18/17 [facility] [address], [address] [place] [address]- [phone] Discharge Disposition: Home or Self Care Attending Physician: Bailey Figueroa MD Vital Signs Most recent to 1 2 oldest [Reference Range]: Height 149.86 cm (11/18/17 10:55 AM) Temperature Oral 97.9 DegF [96.4-99.1 DegF] (11/18/17 10:55 AM) Blood Pressure 129/68 mmHg 160/64 mmHg [90-140/60-90 mmHg] (11/18/17 12:28 PM) *HI* (11/18/17 10:55 AM) Respiratory Rate 16 BRMIN [14-20 BRMIN] (11/18/17 10:55 AM) Peripheral Pulse 64 bpm Rate [60-100 bpm] (11/18/17 10:55 AM) Weight 72.727 kg (11/18/17 10:55 AM) Body Mass Index 32.38 m2 (11/18/17 10:55 AM) Problem List Condition Effective Dates Status [...] Substance Reaction Severity Status NKDA Active Medications triamcinolone topical 0.1% cream 1 appl, TOP, BID, PRN Apply to affected area(s), X 14 day, # 60 gm, 0 Refill(s), Pharmacy: [id number] Start Date: 11/18/17 Stop Date: 12/02/17 Status: Completed Results No data available for this section [...]
--- OUTSIDE RECORDS SUMMARY | 2018-10-24 15:28 | XMS REPORT | Summary of Care ---
Author Author [facility] Organization [facility] Address Unknown Phone Unavailable Encounter HQ Shelly(FIN) [phone] Date(s): 03/04/18 - 03/04/18 [facility] [address] [address]- Discharge Disposition: Home or Self Care Attending Physician: Bailey Figueroa MD Vital Signs Most recent to 1 2 oldest [Reference Range]: Height 152.4 cm (03/04/18 11:04 AM) Temperature Oral 97.0 DegF [96.4-99.1 DegF] (03/04/18 11:04 AM) Blood Pressure 120/65 mmHg 154/66 mmHg [90-140/60-90 mmHg] (03/04/18 11:36 AM) *HI* (03/04/18 11:04 AM) Respiratory Rate 16 BRMIN [14-20 BRMIN] (03/04/18 11:04 AM) Peripheral Pulse 54 bpm Rate [60-100 bpm] *LOW* (03/04/18 11:04 AM) Weight 70 kg (03/04/18 11:04 AM) Body Mass Index 30.14 m2 (03/04/18 11:04 AM) Problem List Condition Effective Dates Status [...] Reactions, Alerts No Known Medication Allergies Medications No Known Medications Results No data available for this section [...]
--- OUTSIDE RECORDS SUMMARY | 2018-10-24 15:28 | XMS REPORT | Summary of Care ---
Author Author [facility] Organization [facility] Address Unknown Phone Unavailable Encounter LESVIA Bravo(FIN) [id number] Date(s): 02/04/18 - 02/04/18 [facility] [address] [address]- Discharge Disposition: Home or Self Care Attending Physician: Bailey Figueroa MD Vital Signs Most recent to 1 oldest [Reference Range]: Height 152.4 cm (02/04/18 10:04 AM) Temperature Oral 96.9 DegF [96.4-99.1 DegF] (02/04/18 10:04 AM) Blood Pressure 137/62 mmHg [90-140/60-90 mmHg] (02/04/18 10:04 AM) Respiratory Rate 16 BRMIN [14-20 BRMIN] (02/04/18 10:04 AM) Peripheral Pulse 68 bpm Rate [60-100 bpm] (02/04/18 10:04 AM) Weight 70.909 kg (02/04/18 10:04 AM) Body Mass Index 30.53 m2 (02/04/18 10:04 AM) Problem List Condition Effective Dates Status [...] Substance Reaction Severity Status NKDA Active Medications oxybutynin 10 mg oral tablet, extended release 10 mg=1 tab, PO, Daily, # 90 tab, 1 Refill(s), Pharmacy: [facility] 04 133 Start Date: 02/04/18 Status: Ordered Results No data available for [...]
--- OUTSIDE RECORDS SUMMARY | 2018-10-24 15:28 | XMS REPORT | Summary of Care ---
Author Author [facility] Organization [facility] Address Unknown Phone Unavailable Encounter LESVIA Bravo(TEO) [id number] Date(s): 01/27/18 - 01/28/18 [facility] [address] [place] [address]- Encounter Diagnosis Melena (Final) - 04/03/18 Acute posthemorrhagic anemia (Final) - Gastritis, unspecified, without bleeding (Final) - Duodenitis without bleeding (Final) - Noninfective gastroenteritis and colitis, unspecified (Final) - Dysphagia, unspecified (Final) - Essential (primary) hypertension (Final) - Encounter for immunization (Final) - Mixed hyperlipidemia (Final) - Unspecified osteoarthritis, unspecified site (Final) - Age-related osteoporosis without current pathological fracture (Final) - Prediabetes (Final) - Unspecified asthma, uncomplicated (Final) - Iron deficiency anemia, unspecified (Final) - Other specified diseases of liver (Final) - Unspecified urinary incontinence (Final) - Other chronic pain (Final) - Dorsalgia, unspecified (Final) - Discharge Disposition: Home or Self Care Attending Physician: Isidoro Boggs MD Admitting Physician: Isidoro Boggs MD Vital Signs 1 2 3 Most recent to oldest [Reference Range]: 152.4 cm (01/27/18 1:25 PM) 152.4 cm (01/27/18 10:03 AM) Height 98 DegF (01/28/18 4:25 PM) 98.5 DegF (01/28/18 11:02 AM) 98.4 DegF (01/28/18 7:47 AM) Temperature Oral [96.4-99.1 DegF] 164/73 mmHg *HI* (01/28/18 4:25 PM) 154/64 mmHg *HI* (01/28/18 11:02 AM) 153/68 mmHg *HI* (01/28/18 7:47 AM) Blood Pressure [90-140/60-90 mmHg] 18 BRMIN (01/28/18 4:25 PM) 18 BRMIN (01/28/18 11:02 AM) 18 BRMIN (01/28/18 7:47 AM) Respiratory Rate [14-20 BRMIN] 78 bpm (01/28/18 4:25 PM) 68 bpm (01/28/18 11:02 AM) 65 bpm (01/28/18 7:47 AM) Peripheral Pulse Rate [60-100 bpm] 70 kg (01/27/18 1:25 PM) 70 kg (01/27/18 10:03 AM) Weight 30.14 m2 (01/27/18 1:25 PM) 30.14 m2 (01/27/18 10:03 AM) Body Mass Index Problem List Condition Effective Dates Status Health [...] Substance Reaction Severity Status NKDA Active Medications Chloraseptic 1.4% spray 1 spray, Route: TOP, Daily, Drug form: SPRY, PRN Sore Throat, Start date: 14:00:00 CDT, Duration: 30 day, Stop date: 02/27/18 13:59:00 CDT Notes: WASTE: F/P - Black; E - Municipal Trash Bin Start Date: 01/28/18 Stop Date: 01/28/18 Status: Discontinued Ferrlecit + Sodium Chloride 0.9% IV 90 mL 125 mg, 10 mL, Route: IVPB, Drug form: INJ, ONCE, Dosing Weight 70, kg, Start da te: 01/28/18 13:35:00 CDT, Stop date: 01/28/18 13:35:00 CDT Notes: "Limited stability. Use immediately after admixture""Limited stability. Use immediately after admixture""Limited stability. Use immediately after admi xture"PROTECT FROM LIGHT(Same as: Ferrlecit) MEDICATION WASTE Product Si ze: 62.5 mgProduct Wasted: ___ mg Start Date: 01/28/18 Stop Date: 01/28/18 Status: Completed hydrALAZINE 10 mg, 0.5 mL, Route: IV, Drug form: INJ, ONCE, Dosing Weight 70, kg, PRN Elevat ed BP, Start date: 01/27/18 19:20:00 CDT, Dosing Notes: (Same as: Apresoline)Push over 5 minutes Start Date: 01/27/18 Stop Date: 01/27/18 Status: Completed Lasix 20 mg, 2 mL, Route: IVP, Drug form: INJ, ONCE, Dosing Weight 70, kg, Start date: 01/27/18 22:00:00 CDT, Stop date: 01/27/18 22:00:00 CDT Notes: (Same as: Lasix) Start Date: 01/27/18 Stop Date: 01/28/18 Status: Completed lisinopril 40 mg, PO, Daily, 0 Refill(s) Start Date: 01/27/18 Stop Date: 07/01/18 Status: Discontinued ondansetron 4 mg, 2 mL, Route: IVP, Drug form: INJ, ONCE, Dosing Weight 70, kg, PRN Nausea & Vomiting, Start date: 01/27/18 13:03:00 CDT Notes: (Same as: Zofran) MEDICATION WASTE Product Size: 4 mgProduct Was veronika: ___ mg Start Date: 01/27/18 Stop Date: 01/28/18 Status: Discontinued pantoprazole 40 mg, Route: IVP, ONCE, Dosing Weight 70, kg, Priority: STAT, Start date: 01/27 10:33:00 CDT, Stop date: 01/27/18 10:33:00 CDT Start Date: 01/27/18 Stop Date: 01/27/18 Status: Completed pantoprazole 40 mg, Route: IVP, Drug form: INJ, Q12H, Dosing Weight 70, kg, Start date: 01/27 21:00:00 CDT, Duration: 30 day, Stop date: 02/26/18 9:00:00 CDT Start Date: 01/27/18 Stop Date: 01/28/18 Status: Discontinued pantoprazole 80 mg + Sodium Chloride 0.9% IV 100 mL 100 mL, Rate: 10 ml/hr, Infuse over: 10 hr, Route: IV, Dosing Weight 70 kg, Tota l Volume: 100, Start date: 01/27/18 10:33:00 CDT, Duration: 369 minutes, Stop da te: 01/27/18 19:30:00 CDT, 1.75, m2 Notes: do not load in pyxis Start Date: 01/27/18 Stop Date: 01/27/18 Status: Completed Saline Flush 0.9% 10 mL, Route: IVP, Drug Form: INJ, Dosing Weight 70, kg, PRN, PRN Line Flush, St art date: 01/27/18 10:13:00 CDT, Duration: 30 day, Stop date: 02/26/18 10:12:00 CDT Notes: (Same as: BD Posiflush) Start Date: 01/27/18 Stop Date: 01/28/18 Status: Discontinued Saline Flush 0.9% 10 mL, Route: IVP, Drug Form: INJ, Dosing Weight 70, kg, PRN, PRN Line Flush, St art date: 01/27/18 10:33:00 CDT, Duration: 30 day, Stop date: 02/26/18 10:32:00 CDT Notes: (Same as: BD Posiflush) Start Date: 01/27/18 Stop Date: 01/28/18 Status: Discontinued Sodium Chloride 0.9% (Bolus) IV 500 mL, Infuse Over: 1 hr, Route: IV, ONCE, Priority: STAT, Dosing Weight 70 kg, Start date: 01/27/18 10:33:00 CDT, Stop date: 01/27/18 10:33:00 CDT Start Date: 01/27/18 Stop Date: 01/27/18 Status: Completed Sodium Chloride 0.9% (titrate) 250 mL 250 mL, Rate: To prime line and flush remaining blood products., Dosing Weight 7 0, kg, Route: IV, Total Volume: 250, Start Date: 01/27/18 10:13:00 CDT, Duration : 30 day, Stop date: 02/26/18 10:12:00 CDT, Replace Every: 24 hr Start Date: 01/27/18 Stop Date: 01/28/18 Status: Discontinued Sodium Chloride 0.9% IV 1,000 mL 1,000 mL, Rate: 25 ml/hr, Infuse over: 40 hr, Route: IV, Dosing Weight 70 kg, To jackie Volume: 1,000, Start date: 01/27/18 16:18:00 CDT, Duration: 30 day, Stop tiffanie e: 02/26/18 16:17:00 CDT, 1.75, m2 Start Date: 01/27/18 Stop Date: 01/27/18 Status: Discontinued sucralfate 1 gm, 1 tab, Route: PO, Drug form: TAB, QID, Dosing Weight 70, kg, Start date: 0 01/28/18 17:00:00 CDT, Duration: 30 day, Stop date: 02/27/18 13:00:00 CDT Notes: May interfere w/enteral feeds - Take 1 hr before or 2 hr after antacids, dairy pdt, meals & minerals - On empty stomach.For patients unable to swallow tablet, dissolve in 10mL - 30mL of water or juice and stir before giving. (Same As: Carafate) Start Date: 01/28/18 Stop Date: 01/28/18 Status: Discontinued sucralfate 1 g oral tablet 1 gm=1 tab, PO, QID, # 120 tab, 0 Refill(s), Pharmacy: [id number] Start Date: 01/28/18 Stop Date: 02/27/18 Status: Ordered Results BLOOD BANK RESULTS 1 2 3 Most recent to oldest [Reference Range]: A NEG *Unknown* (01/27/18 10:32 AM) ABO/Rh Negative (01/27/18 10:32 AM) Antibody Scrn Product available 1 (01/27/18 11:55 AM) RBC product 1Result Comment: 01/27/2018 12:19 [id number] notified Shonda ELECTROLYTES 1 2 3 Most recent to oldest [Reference Range]: 144 mEq/L (01/27/18 10:32 AM) Sodium Lvl [135-145 mEq/L] 4.2 mEq/L (01/27/18 10:32 AM) Potassium Lvl [3.5-5.1 mEq/L] 113 mEq/L *HI* (01/27/18 10:32 AM) Chloride Lvl [95-109 mEq/L] 20 mEq/L *LOW* (01/27/18 10:32 AM) CO2 [24-32 mEq/L] 15.2 mEq/L (01/27/18 10:32 AM) AGAP [10.0-20.0 mEq/L] CHEM PANEL 1 2 3 Most recent to oldest [Reference Range]: 0.85 mg/dL (01/27/18 10:32 AM) Creatinine Lvl [0.50-1.40 mg/dL] 62 mL/min/1.73m2 1 *NA* (01/27/18 10:32 AM) eGFR 26 mg/dL *HI* (01/27/18 10:32 AM) BUN [7-22 mg/dL] 31 *HI* (01/27/18 10:32 AM) B/C Ratio [6-25] 107 mg/dL *HI* (01/27/18 10:32 AM) Glucose Lvl [70-99 mg/dL] 7.0 g/dL (01/27/18 10:32 AM) Total Protein [6.4-8.4 g/dL] 3.4 g/dL *LOW* (01/27/18 10:32 AM) Albumin Lvl [3.5-5.0 g/dL] 3.6 g/dL (01/27/18 10:32 AM) Globulin [2.7-4.2 g/dL] 0.9 (01/27/18 10:32 AM) A/G Ratio [0.7-1.6] 8.6 mg/dL (01/27/18 10:32 AM) Calcium Lvl [8.5-10.5 mg/dL] 17 unit/L (01/27/18 10:32 AM) ALT [0-65 unit/L] 25 unit/L (01/27/18 10:32 AM) AST [0-37 unit/L] 47 unit/L (01/27/18 10:32 AM) Alk Phos [39-136 unit/L] 0.3 mg/dL (01/27/18 10:32 AM) Bili Total [0.2-1.3 mg/dL] 1Result Comment: The eGFR is calculated using [...] be mul tiplied by the estimated BMI. CARDIAC ENZYMES 1 2 3 Most recent to oldest [Reference Range]: 104 unit/L (01/27/18 10:32 AM) Total CK [12-191 unit/L] <0.02 ng/mL (01/27/18 10:32 AM) Troponin-I [0.00-0.40 ng/mL] URINE AND STOOL 1 2 3 Most recent to oldest [Reference Range]: Clear (01/27/18 10:32 AM) UA Turbidity [Clear] Yellow *NA* (01/27/18 10:32 AM) UA Color [Yellow] 5.0 (01/27/18 10:32 AM) UA pH [5.0-8.0] 1.020 (01/27/18 10:32 AM) UA Spec Grav [<=1.030] Negative mg/dL *NA* (01/27/18 10:32 AM) UA Glucose [Negative mg/dL] Negative (01/27/18 10:32 AM) UA Blood [Negative] Negative mg/dL *NA* (01/27/18 10:32 AM) UA Ketones [Negative mg/dL] Negative mg/dL (01/27/18 10:32 AM) UA Protein [Negative mg/dL] <=1.0 mg/dL *NA* (01/27/18 10:32 AM) UA Urobilinogen [0.1-1.0 mg/dL] Negative *NA* (01/27/18 10:32 AM) UA Bili [Negative] Large *ABN* (01/27/18 10:32 AM) UA Leuk Est [Negative] Negative (01/27/18 10:32 AM) UA Nitrite [Negative] 6 /HPF *HI* (01/27/18 10:32 AM) UA WBC [0-5 /HPF] 3 /HPF *HI* (01/27/18 10:32 AM) UA RBC [0-2 /HPF] Occasional /LPF *NA* (01/27/18 10:32 AM) UA Sq Epi [Few /LPF] Few /LPF *NA* (01/27/18 10:32 AM) UA Mucus [None Seen /LPF] HEMATOLOGY 1 2 3 Most recent to oldest [Reference Range]: 7.6 K/CMM (01/28/18 5:57 AM) 4.2 K/CMM (01/27/18 10:32 AM) WBC [3.7-10.4 K/CMM] 4.12 M/CMM *LOW* (01/28/18 5:57 AM) 3.65 M/CMM *LOW* (01/27/18 10:32 AM) RBC [4.20-5.40 M/CMM] 8.8 g/dL *LOW* (01/28/18 5:57 AM) 8.8 g/dL *LOW* (01/28/18 5:57 AM) 9.0 g/dL *LOW* (01/28/18 2:25 AM) Hgb [12.0-16.0 g/dL] 27.5 % *LOW* (01/28/18 5:57 AM) 26.9 % *LOW* (01/28/18 5:57 AM) 28.3 % *LOW* (01/28/18 2:25 AM) Hct [36.0-48.0 %] 66.6 fL *LOW* (01/28/18 5:57 AM) 63.4 fL *LOW* (01/27/18 10:32 AM) MCV [80.0-98.0 fL] 21.3 pg *LOW* (01/28/18 5:57 AM) 19.5 pg *LOW* (01/27/18 10:32 AM) MCH [27.0-31.0 pg] 32.0 g/dL (01/28/18 5:57 AM) 30.7 g/dL *LOW* (01/27/18 10:32 AM) MCHC [32.0-36.0 g/dL] 25.1 % *HI* (01/28/18 5:57 AM) 21.2 % *HI* (01/27/18 10:32 AM) RDW [11.5-14.5 %] 7.7 fL (01/28/18 5:57 AM) 7.9 fL (01/27/18 10:32 AM) MPV [7.4-10.4 fL] 249 K/CMM (01/28/18 5:57 AM) 261 K/CMM (01/27/18 10:32 AM) Platelet [133-450 K/CMM] 69.4 % (01/28/18 5:57 AM) 59.7 % (01/27/18 10:32 AM) Segs [45.0-75.0 %] 20.7 % (01/28/18 5:57 AM) 30.1 % (01/27/18 10:32 AM) Lymphocytes [20.0-40.0 %] 7.4 % (01/28/18 5:57 AM) 8.1 % (01/27/18 10:32 AM) Monocytes [2.0-12.0 %] 1.6 % (01/28/18 5:57 AM) 1.1 % (01/27/18 10:32 AM) Eosinophils [0.0-4.0 %] 0.9 % (01/28/18 5:57 AM) 1.0 % (01/27/18 10:32 AM) Basophils [0.0-1.0 %] 5.3 K/CMM (01/28/18 5:57 AM) 2.5 K/CMM (01/27/18 10:32 AM) Neutrophils # [1.5-8.1 K/CMM] 1.6 K/CMM (01/28/18 5:57 AM) 1.3 K/CMM (01/27/18 10:32 AM) Lymphocytes # [1.0-5.5 K/CMM] 0.6 K/CMM (01/28/18 5:57 AM) 0.3 K/CMM (01/27/18 10:32 AM) Monocytes # [0.0-0.8 K/CMM] 0.1 K/CMM (01/28/18 5:57 AM) Eosinophils # [0.0-0.5 K/CMM] 0.1 K/CMM (01/28/18 5:57 AM) Basophils # [0.0-0.2 K/CMM] 1+ *ABN* (01/28/18 5:57 AM) Anisocyte [None Seen] 1+ (01/27/18 10:32 AM) Hypochrom [None Seen] 3+ *NA* (01/28/18 5:57 AM) 3+ *NA* (01/27/18 10:32 AM) Microcyte [None Seen] Normal (01/28/18 5:57 AM) Normal (01/27/18 10:32 AM) Plt Morph 14.4 seconds (01/27/18 10:32 AM) PT [12.0-14.7 seconds] 1.12 (01/27/18 10:32 AM) INR [0.85-1.17] 34.3 seconds (01/27/18 10:32 AM) PTT [22.9-35.8 seconds] Immunizations Given and Recorded Vaccine Date Status [...] No entered on: 07/01/18 Assessment and Plan Extracted from: Title: Heme-Onc Consult Author: Trav Perez MD Date: 01/28/18 Hematology Oncology Consult Note: REFERRING PHYSICIAN: Prabhu Bui REASON FOR CONSULTATION: Anemia CHIEF COMPLAINT: I had black stools HISTORY OF PRESENT ILLNESS: This is a 89-year-old female with past medical history of hypertension, asthma, liver cyst, who was sent to the emergency room by her PCP with anemia. Patient reports having dark black colored stools over the last 2 days. GI was consulted and patient underwent EGD, which showed normal-appearing esophagus with no active bleeding. Hematology was consulted for further relation and management of anemia. Since admission to the hospital, patient has received 2 units of PRBC. Her hemoglobin has improved from 7.2 to 9.0. Iron panel was also checked and patient was found to have ferritin of 7 and transferrin saturation of 3%. Patient reports feeling better after transfusion. PAST MEDICAL HISTORY: Anemia Benign hypertension Cholelithiasis Chronic anemia Chronic back pain Chronic diarrhea Gastritis Liver cyst Liver mass Mixed hyperlipidemia OA (osteoarthritis) Oral aphthae Osteoporosis Prediabetes Recurrent urinary tract infection UI (urinary incontinence) Unstable gait Weight loss PAST SURGICAL HISTORY: Colonoscopy: 12/03/16 Endoscopy: 12/03/16 Echocardiogram: 08/19/16 Bone density scan: 06/15/16 Cholecystectomy: 08/2015 Knee replacement: 2014 Hysterectomy SOCIAL HISTORY: Alcohol Details: Never Tobacco Details: Use: Never smoker. Type: Cigarettes. Tobacco smoke exposure: None. Did the Patient Smoke Cigarettes Anytime During the Last 365 Days? No. Cessation Counseling Provided? No. Details: Use: Never smoker. Tobacco smoke exposure: None. Did the Patient Smoke Cigarettes Anytime During the Last 365 Days? No. Cessation Counseling Provided? No. FAMILY HISTORY: Child: Thyroid disease ALLERGIES: Allergies: NKDA Home Medications Home Medications (10) Active alendronate 70 mg oral tablet See Instructions alendronate 70 mg oral tablet 70 mg=1 tab, PO, Q7D carvedilol 12.5 mg oral tablet 12.5 mg=1 tab, PO, BID ferrous sulfate 325 mg oral enteric coated tablet 325 mg=1 tab, PO, Daily lisinopril 40 mg, PO, Daily lovastatin 10 mg oral tablet 10 mg=1 tab, PO, Bedtime omeprazole 40 mg oral delayed release capsule 40 mg=1 cap, PO, Daily oxybutynin 5 mg oral tablet, extended release See Instructions Ventolin HFA 90 mcg/inh inhalation aerosol with adapter 180 microgram=2 puff, PRN, INHALER, Q6H Voltaren Topical 1% topical gel 2 gm=1 appl, TOP, BID Inpatient Medications: Medications (10) Active Scheduled Meds (2): 01/27/18 pantoprazole 40 mg IVP Q12H 01/28/18 sucralfate 1 gm PO QID Unscheduled Meds: None PRN Meds (3): 01/28/18 phenol topical (Chloraseptic 1.4% spray) 1 spray TOP Daily 01/27/18 sodium chloride (Saline Flush 0.9%) 10 mL IVP PRN 01/27/18 sodium chloride (Saline Flush 0.9%) 10 mL IVP PRN One Time Meds (4): 01/27/18 (Completed) Sodium Chloride 0.9% IV (Sodium Chloride 0.9% (Bolus) IV) 500 mL IV ONCE 01/27/18 (not done) furosemide (Lasix) 20 mg IVP ONCE 01/27/18 (Completed) pantoprazole 40 mg IVP ONCE 01/28/18 (Completed) sodium ferric gluconate complex + Sodium Chloride 0.9% IV 90 mL (Ferrlecit + Sodium Chloride 0.9% IV 90 mL) 125 mg IVPB ONCE 100 ml/hr Continuous Infusions (1): 01/27/18 Sodium Chloride 0.9% IV 250 mL (Sodium Chloride 0.9% (titrate) 250 mL) 250 mL To prime line and flush remaining blood products. REVIEW OF SYSTEMS: 12 point review of systems was performed and is negative except for what is mentioned in HPI PHYSICAL EXAMINATION: VitalsTmp(F)[id number] 01/28 16:[id number]--- 01/28 11:[id number]--- 01/28 07:[id number]--- 01/28 03:[id number]--- 01/27 23:[id number]--- 24 Hr Tmax: 98.9F (37.17c) at 01/27 23:10Vital Signs are the last 5 in the past 48 hours. Gen: NAD, AAOx3 HEENT: PERRL, EOMI, MMM Heart: RRR, S1, s2, no M/R/G Lungs: CTAB, no W/R/R Abd: soft, NT/ND, +BS, no HSM : no suprapubic tenderness Extrem: no pitting edema noted DATA: Labs reviewed, noted Hct: 27.5 % Low (01/28/18 05:57:00) Hct: 26.9 % Low (01/28/18 05:57:00) Hgb: 8.8 g/dL Low (01/28/18 05:57:00) Hgb: 8.8 g/dL Low (01/28/18 05:57:00) MCH: 21.3 pg Low (01/28/18 05:57:00) MCHC: 32 g/dL (01/28/18 05:57:00) MCV: 66.6 fL Low (01/28/18 05:57:00) MPV: 7.7 fL (01/28/18 05:57:00) Platelet: 249 K/CMM (01/28/18 05:57:00) RBC: 4.12 M/CMM Low (01/28/18 05:57:00) RDW: 25.1 % High (01/28/18 05:57:00) WBC: 7.6 K/CMM (01/28/18 05:57:00) AGAP: 15.2 mEq/L (01/27/18 10:32:00) Chloride Lvl: 113 mEq/L High (01/27/18 10:32:00) CO2: 20 mEq/L Low (01/27/18 10:32:00) Potassium Lvl: 4.2 mEq/L (01/27/18 10:32:00) Sodium Lvl: 144 mEq/L (01/27/18 10:32:00) A/G Ratio: 0.9 (01/27/18 10:32:00) Albumin Lvl: 3.4 g/dL Low (01/27/18 10:32:00) Alk Phos: 47 unit/L (01/27/18 10:32:00) ALT: 17 unit/L (01/27/18 10:32:00) AST: 25 unit/L (01/27/18 10:32:00) B/C Ratio: 31 High (01/27/18 10:32:00) Bili Total: 0.3 mg/dL (01/27/18 10:32:00) BUN: 26 mg/dL High (01/27/18 10:32:00) Calcium Lvl: 8.6 mg/dL (01/27/18 10:32:00) Creatinine Lvl: 0.85 mg/dL (01/27/18 10:32:00) eGFR: 62 mL/min/1.73m2 (01/27/18 10:32:00) Globulin: 3.6 g/dL (01/27/18 10:32:00) Glucose Lvl: 107 mg/dL High (01/27/18 10:32:00) Total Protein: 7 g/dL (01/27/18 10:32:00) Imaging reviewed, noted Imaging Studies (last 36 hours) ED Abdomen/Pelvis IV contrast only CT 01/27/2018 14:30 Impression: 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 Bilateral renal cysts. Ventral abdominal hernia containing mesenteric fat. Colonic diverticulosis. No CT evidence for diverticulitis. Fatty infiltration of liver. Status post cholecystectomy. SL: [id number] ASSESSMENT AND PLAN: Anemia, Microcytic Consistent with iron deficiency, ferritin 7, transferrin saturation 3% Appreciate GI workup, no evidence of bleeding on EGD Pending colonoscopy We will give patient 1 infusion of iron today prior to discharge Unfortunately patient has a [place] insurance and I am out of network Informed patient to seek outside supply chain specialist for further follow-up Patient received iron tablets from her PCP, encouraged her to take it up to 3 times a day together with vitamin C Heme-Onc Dispo - no further inpatient work up is planned. Patient is cleared for discharge from Heme-Onc standoint Thank you for this consult, will continue to follow with you Extracted from: Title: GI Author: Dasha Franklin NP Date: 01/28/18 Progress Note - Daily [facility] Completed: Jan, 13:20 by Dasha Franklin WATER QUALITY ANALYST RM: 158 - 1P, MICHAELLE PEREZ S87y (: 1930) F Attending: Isidoro Boggs MDPhone: Service: Internal Medicine Reason for Admission: GI BLEED/ACUTE BLOOD LOSS ANEMIA Working DRG: Code status: Full CodeCurrent diet: Isolation: No Isolation/Standard Precautions Allergies: NKDA SUBJECTIVE no new complaints no diarrhea today no overt bleeding OBJECTIVE 24hr Labs 01/28 0557 Hgb8.8 L Hct26.9 L WBC7.6 RBC4.12 L Hgb8.8 L Hct27.5 L MCV66.6 L MCH21.3 L MCHC32.0 RDW25.1 H Icceofan207 MPV7.7 Segs69.4 Monocytes7.4 Dsrupsbhnfn55.7 Eosinophils1.6 Basophils0.9 Segs-Bands #5.3 Lymphocytes #1.6 Monocytes #0.6 Eosinophils #0.1 Basophils #0.1 Plt MorphNormal Anisocyte1+ Microcyte3+ 01/28 0225 Hgb9.0 L Hct28.3 L 01/27 2250 Hgb9.0 L Hct28.0 L 01/27 1357 Hgb6.7 C Hct22.2 L Tai still necessary (Yes/No): Line still necessary (Yes/No): VitalsTmp(F)[id number] 01/28 11:[id number]--- 01/28 07:[id number]--- 01/28 03:[id number]--- 01/27 23:[id number]--- 01/27 19:[id number]--- 24 Hr Tmax: 98.9F (37.17c) at 01/27 23:10Vital Signs are the last 5 in the past 48 hours. DateWt(kg)Wt(lb)Ht(cm)Ht(in)Method 01/27 (initial) 70.00 154.00Estimated 52.40 60.00Stated I&ORecordInOutBal 01/2824hr Tot 0 0 0 01/2724hr Tot 1321 0 1321 Medications (9) Active Scheduled Meds (1): 01/27/18 pantoprazole 40 mg IVP Q12H Unscheduled Meds (2): 01/27/18 influenza virus vaccine, inactivated (influenza virus vaccine, inactivated high-dose preservative-free intramuscular suspension) 0.5 mL IM ONCALL 01/27/18 pneumococcal 13-valent vaccine 0.5 mL IM ONCALL PRN Meds (2): 01/27/18 sodium chloride (Saline Flush 0.9%) 10 mL IVP PRN 01/27/18 sodium chloride (Saline Flush 0.9%) 10 mL IVP PRN One Time Meds (3): 01/27/18 (Completed) Sodium Chloride 0.9% IV (Sodium Chloride 0.9% (Bolus) IV) 500 mL IV ONCE 01/27/18 (not done) furosemide (Lasix) 20 mg IVP ONCE 01/27/18 (Completed) pantoprazole 40 mg IVP ONCE Continuous Infusions (1): 01/27/18 Sodium Chloride 0.9% IV 250 mL (Sodium Chloride 0.9% (titrate) 250 mL) 250 mL To prime line and flush remaining blood products. General: No acute distress. HENT: Normocephalic Neck: Supple, Non-tender. Respiratory: Lungs are clear to auscultation, Respirations are non-labored Cardiovascular: Normal rate, Regular rhythm, No murmur, Gastrointestinal: Soft, Non-tender, Non-distended. Integumentary: Warm, Dry, [place]. Neurologic: Alert, Oriented x 3 Psychiatric: Cooperative, Appropriate mood & affect. IMPRESSION 1. Microcytic Anemia with ? Melena- stable post transfusion -s/p EGD- mild gastritis, mild duodenitis, no bleeding 3. Diarrhea 4. h/o liver cyst, stable from 2014 - followed by Dr. Orellana outpt RECOMMENDATIONS 1. PPI 2. Monitor h/h, transfuse for hgb hgb<7. 3. Montior BMs and for overt GI bleeding 4. heme eval pending 5. Follow up with Esteban Ndiaye at [facility] liver [facility] 6. Follow up wiht Dr. Mcgill in 2 weeks after d/c 7. Ok to d/c from GI standpoint after heme evaluation d.w pt, family members, and Dr. Boggs GI Attending I have examined the patient with the Nurse Practitioner and confirmed the essential components of history, physical examination, diagnosis and treatment plan. I agree with the patient's care as documented by the Nurse Practitioner. d/w pts family at length No further bleeding Outpt f/u with Artem next week Extracted from: Title: General Admission H&P * Author: Isidoro Boggs Date: 01/27/18 Impression and Plan 87-year-old female with a past medical history of hypertension and liver disease presented to ER with abnormal labs and dark stools. Impression: Acute upper GI bleed/melena Diarrhea acute blood loss anemia Microcytic anemia History of liver cyst which is stable from 2014, patient is being followed by Dr Orellana. Plan: We will admit to medicine Activity as tolerated Vitals per unit policy We will start on PPI ER is ordered 2 units of PRBC Serial H&H Closely monitor for any overt GI bleeding. The patient condition gets worse, patient may be upgraded to ICU/IMCU GI consulted Plan for endoscopic evaluation. Will need outpatient follow-up for liver cyst CODE STATUS full Prognosis guarded
--- OUTSIDE RECORDS SUMMARY | 2018-10-24 15:28 | XMS REPORT | Summary of Care ---
Author Author [facility] Organization [facility] Address Unknown Phone Unavailable Encounter HQ Shelly(FIN) [phone] Date(s): 06/01/18 - 06/01/18 [facility] [address], [address] [place] [address]- [phone] Discharge Disposition: Home or Self Care Attending Physician: Bailey Figueroa MD Vital Signs Most recent to 1 oldest [Reference Range]: Height 152.4 cm (06/01/18 2:51 PM) Temperature Oral 97.9 DegF [96.4-99.1 DegF] (06/01/18 2:51 PM) Blood Pressure 142/69 mmHg [90-140/60-90 mmHg] *HI* (06/01/18 2:51 PM) Respiratory Rate 14 BRMIN [14-20 BRMIN] (06/01/18 2:51 PM) Peripheral Pulse 75 bpm Rate [60-100 bpm] (06/01/18 2:51 PM) Weight 71.477 kg (06/01/18 2:51 PM) Body Mass Index 30.77 m2 (06/01/18 2:51 PM) Problem List Condition Effective Dates Status [...] Substance Reaction Severity Status NKDA Active Medications cephalexin 500 mg oral capsule 500 mg=1 cap, PO, TID, # 15 cap, 0 Refill(s), [id number] Start Date: 06/01/18 Stop Date: 06/01/19 Status: Ordered Results No data available for [...]
[2018-10-24] MEDS ORDERED: ACETAMINOPHEN 325 MG TAB ONE (16:00)
[2018-10-24] MEDS ORDERED: ACETAMINOPHEN 325 MG TAB PO ONE (16:00)
--- NOTE | 2018-10-24 16:45 | Diagnostic Imaging Report ---
Exam: Left wrist 3 views History: Trauma Comparison: None. Findings: The bones are diffusely osteopenic. No acute, displaced fracture or dislocation. Appropriate alignment between the distal radius, lunate, and capitate is maintained on the lateral radiograph. Radiocarpal cartilaginous calcifications. Soft tissues otherwise unremarkable. Impression: Diffuse osteopenia without acute osseous abnormality. Articular cartilaginous calcifications. 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 Signed by: Dr. Brandon Mccauley M.D. on 10/24/2018 4:42 PM
--- NOTE | 2018-10-24 16:48 | Diagnostic Imaging Report ---
Exam: Left shoulder 3 views History: Trauma Comparison: None. Findings: Diffuse osteopenia. There is an acute, comminuted fracture of the surgical neck of the left humerus with involvement of the greater tuberosity and impaction of the humeral shaft into the head by approximately 1 cm. The humeral head projects appropriately over the glenoid when accounting for suboptimal position on the transscapular radiograph. Acromioclavicular joint and clavicle appear intact. Atherosclerotic calcification of the thoracic aorta partially visualized. Healed fracture posterior left fifth rib partially visualized. Impression: Acute, comminuted fracture of the surgical neck and greater humeral tuberosity with approximately 1 cm fragment impaction. Signed by: Dr. Brandon Mccauley M.D. on 10/24/2018 4:45 PM
--- NOTE | 2018-10-24 16:52 | Diagnostic Imaging Report ---
Exam: Left hip and pelvis History: trauma, pain Comparison: None. Findings: The bones are diffusely osteopenic. No acute, displaced fracture or dislocation. Femoral head projects appropriately over the acetabulum. 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 Sacroiliac joints are intact. Degenerative disc changes and facet arthropathy of the partially visualized lumbar spine. Vertebroplasty cement within the partially visualized L3 vertebral body. Multiple pelvic phleboliths. Atherosclerotic vascular calcifications. Impression: Diffuse osteopenia without acute osseous abnormality. Symmetric degenerative arthrosis of the hips. Signed by: Dr. Brandon Mccauley M.D. on 10/24/2018 4:48 PM
[2018-10-24] MEDS ORDERED: ULTRAM50 MG PO (17:09)
== END 2018-10-24 17:22 | disposition home or self-care (01) ==
LOC: FSED 15:19
DX: M79.622 Pain in left upper arm (principal); M25.512 Pain in left shoulder; S42.352A Displaced comminuted fracture of shaft of humerus, left arm, initial encounter for closed fracture; M25.552 Pain in left hip; W01.0XXA Fall on same level from slipping, tripping and stumbling without subsequent striking against object, initial encounter; Y93.H2 Activity, gardening and landscaping; Y92.007 Garden or yard of unspecified non-institutional (private) residence as the place of occurrence of the external cause; M15.0 Primary generalized (osteo)arthritis; E78.5 Hyperlipidemia, unspecified; I10 Essential (primary) hypertension
CPT/HCPCS: 99284

== ENCOUNTER 2020-11-23 17:51 | Emergency (ER) | payer OTHER ==
[~2020-11-23] VITALS: Ht 149.9 cm; Wt 68.0 kg
[2020-11-23] MEDS ORDERED: SODIUM CHLORIDE 0.9% 1000ML 1,000 ML IV STA (18:29)
[2020-11-23] MEDS ORDERED: ONDANSETRON HCL INJ 2MG/ML 2ML 2 MG/ML VIAL IV STA (18:29)
[2020-11-23] MEDS ORDERED: SODIUM CHLORIDE 0.9% 1000ML 1,000 ML ONE (18:45)
[2020-11-23] MEDS ORDERED: ONDANSETRON HCL INJ 2MG/ML 2ML 2 MG/ML VIAL ONE (18:45)
[2020-11-23] MEDS ORDERED: SODIUM CHLORIDE 0.9% 50ML 50 ML ONE (19:26)
[2020-11-23] MEDS ORDERED: IOPAMIDOL 370 MG/ML 200 ML INFUS..BTL INJ ONE (19:26)
[2020-11-23] MEDS ORDERED: ONDANSETRON ODT4 MG PO (22:04)
== END 2020-11-23 22:35 | disposition home or self-care (01) ==
LOC: FSED 19:09
DX: E86.0 Dehydration (principal)
CPT/HCPCS: 74176; 80053; 81003; 82553; 84484; 85025; 93005; 96374; 99284; J2405; J7030; Q9967